=== PATIENT | female | born 1970 | race Caucasian/White ===

== ENCOUNTER 2017-05-31 05:52 | Emergency (ER) | payer MEDICAID ==
[2017-05-31 06:10] LABS: HEMATOCRIT 45.7 % (35.0-47.0); HEMOGLOBIN 15.4 gm/dl (11.6-16.0); MEAN CELL VOLUME 93.5 fl (81-97); MEAN CORPUSCULAR HEMOGLOBIN 31.5 pg (27-33); MEAN CORPUSCULAR HGB CONC 33.7 g/dl (32-36); MEAN PLATELET VOLUME 10.4 fl (7.4-10.4); PLATELET COUNT 397 K/uL (130-400); RED BLOOD COUNT 4.89 M/uL (3.80-5.40); RED CELL DISTRIBUTION WIDTH 17.1 % (11.5-14.5); WHITE BLOOD COUNT W/O DIFF 16.4 K/uL (4.2-12.2)
[2017-05-31] MEDS ORDERED: ASPIRIN 325 MG TABLET PO ONE (06:14)
[2017-05-31] MEDS ORDERED: ASPIRIN 81 MG CHEWABLE TABLET PO ONE (06:22)
--- NOTE | 2017-05-31 06:29 | Emergency Department Record ---
History of Present Illness - General Chief Complaint: Shortness of breath Stated Complaint: TROUBLE BREATHING Time Seen by Provider: 05/31/17 06:14 Source: Patient Mode of Arrival: EMS - History of Present Illness Initial Comments: Chest tightness throughout the night with Isidoro from her asthma. Patient is poor historian, crying, requesting to go to [facility]. Complaint: "Asthma attack", Chest pain Onset/Timin -: Days(s) Severity scale (1-10): 7 Worsens With: Inspiration Known History Of: Asthma Associated Symptoms: Denies other symptoms Treatments Prior to Arrival: Bronchodilator - Related Data Home Oxygen Therapy: No Home Medications Medication Instructions Recorded Confirmed Last Taken Simvastatin [Zocor] 20 mg PO QHS 06/05/14 12/02/15 12/01/15 Venlafaxine HCl [Effexor Xr] 150 mg PO DAILY 09/19/14 12/02/15 1 Day Ago ~12/01/15 Albuterol Sulfate [Ventolin Hfa] 2 inh IH Q6HR PRN 05/31/17 05/31/17 05/31/17 Previous Rx's Medication Instructions Recorded Lisinopril [Zestril] 10 mg PO DAILY #30 tablet 11/13/14 Pregabalin [Lyrica] 150 mg PO TID #90 capsule 02/01/15 Hydrocodone/Acetaminophen [[place] 1 tab PO QHS PRN #5 tab 09/14/15 5mg/325mg] Allergies Allergy/AdvReac Type Severity Reaction Status Date / Time No Known Drug Allergies Allergy Verified 03/01/15 12:57 Travel Screening - Travel/Exposure Within Last 30 Days Have you traveled within the last 30 days?: No - Travel Symptoms Symptom Screening: None Review of Systems Reviewed: No additional complaints except as noted below Constitutional: Reports: As per HPI. Denies: Chills, Fever, Malaise, Night sweats, Weakness, Weight change Eyes: Reports: As per HPI. Denies: Eye discharge, Eye pain, Photophobia, Vision change ENT: Reports: As per HPI. Denies: Congestion, Dental pain, Ear pain, Epistaxis , Hearing loss, Throat pain Respiratory: Reports: As per HPI. Denies: Cough, Dyspnea, Hemoptysis, Stridor, Wheezes Cardiovascular: Reports: As per HPI. Denies: Arrhythmia, Chest pain, Dyspnea on exertion, Edema, Murmurs, Orthopnea, Palpitations, Paroxysmal nocturnal dyspnea, Rheumatic Fever, Syncope Endocrine: Reports: As per HPI. Denies: Fatigue, Heat or cold intolerance, Polydipsia, Polyuria Gastrointestinal: Reports: As per HPI. Denies: Abdominal pain, Constipation, Diarrhea, Hematemesis, Hematochezia, Melena, Nausea, Vomiting Genitourinary: Reports: As per HPI. Denies: Abnormal menses, Discharge, Dyspareunia, Dysuria, Frequency, Hematuria, Incontinence, Retention, Urgency Musculoskeletal: Reports: As per HPI. Denies: Arthralgia, Back pain, Gout, Joint swelling, Myalgia, Neck pain Skin: Reports: As per HPI. Denies: Bruising, Change in color, Change in hair/ nails, Lesions, Pruritus, Rash Neurological: Reports: As per HPI. Denies: Abnormal gait, Confusion, Headache, Numbness, Paresthesias, Seizure, Tingling, Tremors, Vertigo, Weakness Psychiatric: Reports: As per HPI. Denies: Anxiety, Auditory hallucinations, Depression, Homicidal thoughts, Suicidal thoughts, Visual hallucinations Hematological/Lymphatic: Reports: As per HPI. Denies: Anemia, Blood Clots, Easy bleeding, Easy bruising, Swollen glands Past Medical History - SOCIAL HISTORY Smoking Status: Current every day smoker - RESPIRATORY Hx Respiratory Disorders: Yes Hx Asthma: Yes - CARDIOVASCULAR Hx Cardio Disorders: Yes Hx Abnormal EKG: Yes (UNKNOWN) Hx Hypertension: Yes - NEURO Hx Neuro Disorders: Yes Hx Neuropathy: Yes - GI Hx GI Disorders: No - Hx Genitourinary Disorders: No - ENDOCRINE Hx Endocrine Disorders: No Hx Diabetes: (borderline) - MUSCULOSKELETAL Hx Musculoskeletal Disorders: Yes Comment:: Spinal stenosis - PSYCH Hx Psych Problems: Yes Hx Anxiety: Yes Hx Depression: Yes - HEMATOLOGY/ONCOLOGY Hx Hematology/Oncology Disorders: No Family Medical History Any Significant Family History?: Yes Hx Diabetes: Mother, Brother/Sister Physical Exam - General General Appearance: Alert, Oriented x3, Cooperative, Severe distress (openly crying, diaphoretic) - Head Head exam: Normal inspection - Eye Eye exam: Normal appearance, PERRL Pupils: Normal accommodation - ENT ENT exam: Normal exam, Mucous membranes moist, Normal external ear exam, Normal orophraynx, TM's normal bilaterally Ear exam: Normal external inspection. negative: External canal tenderness Nasal Exam: Normal inspection. negative: Discharge, Sinus tenderness Mouth exam: Normal external inspection, Tongue normal Teeth exam: Normal inspection. negative: Dental caries Throat exam: Normal inspection. negative: Tonsillar erythema, Tonsillar exudate - Neck Neck exam: Normal inspection, Full ROM. negative: Tenderness - Respiratory Respiratory exam: Normal lung sounds bilaterally, Wheezes (faint distant occassional wheezes bilaterally). negative: Respiratory distress - Cardiovascular Cardiovascular Exam: Normal rhythm, Normal heart sounds, Tachycardia - GI/Abdominal GI/Abdominal exam: Soft, Normal bowel sounds. negative: Tenderness - Rectal Rectal exam: Deferred - exam: Deferred - Extremities Extremities exam: Normal inspection, Full ROM, Normal capillary refill. negative: Tenderness - Back Back exam: Reports: Normal inspection, Full ROM. Denies: Muscle spasm, Rash noted, Tenderness - Neurological Neurological exam: Alert, Normal gait, Oriented X3, Reflexes normal - Psychiatric Psychiatric exam: Normal affect, Normal mood - Skin Skin exam: Dry, Intact, Normal color, Warm Course Vital Signs 05/31/17 05:57 Temperature 98.1 F Pulse Rate 100 H Respiratory 22 Rate Blood Pressure 92/69 Pulse Ox 92 L - Reevaluation(s) Reevaluation #1: DW Dr. Painter who reviewed the EKG sent him. He is requesting a second EKG to review. 05/31/17 06:37 Medical Decision Making - Management Options [facility] Management: Additional Work-up Planned (e.g. 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 ST elevation I,II, AVF with no reciprocal changes; EKG repeated) Disposition Disposition: Transfer Clinical Impression: Acute [place] inferior lateral first episode care Disposition: Acute Care Hospital Transfer Transfer To: [facility] Reason For Transfer: Acute [place] Accepting Physician: Dr. Painter Time Discussed w/Accepting Physician: 06:42 Condition: (3) Guarded Forms: Patient Portal Access Quality - Quality Measures Quality Measures: N/A - Blood Pressure Screening Blood Pressure Classification: Normal BP Reading Systolic Measurement: 92 Diastolic Measurement: 69 Screening for High Blood Pressure: < Normal BP, F/U Not Required > [G8783] Normal BP Follow-up Interventions: No follow-up required
[2017-05-31 06:30] LABS: PLATELET ESTIMATE NORMAL (NORMAL)
[2017-05-31 06:31] LABS: INR 0.99; PARTIAL THROMBOPLASTIN TIME 29.2 SECONDS (24.5-39.1); PROTHROMBIN TIME (PATIENT) 10.7 SECONDS (9.5-12.1)
[2017-05-31] MEDS ORDERED: ONDANSETRON HCL IV 4 MG/2 ML VIAL IVP ONE (06:31)
[2017-05-31] MEDS ORDERED: HEPARIN SODIUM 1000 UNIT/1 ML 10ML VIAL IVP ONE (06:31)
[2017-05-31] MEDS ORDERED: 0.9 % SODIUM CHLORIDE 1000ML 1,000 ML IV ONE (06:32)
[2017-05-31 06:34] LABS: CKMB 2.9 ug/L (0-6); TROPONIN I 0.102 ng/mL (0.00-0.034)
[2017-05-31 06:38] LABS: ANION GAP 16.6 (7-16); BLOOD UREA NITROGEN 13 mg/dL (7-17); CARBON DIOXIDE 22.4 mmol/L (22-30); CREATININE 0.8 mg/dL (0.52-1.04); EST GLOMERULAR FILTRATION RATE > 60 ml/min; GLUCOSE,RANDOM 192 mg/dL (70-110)
[2017-05-31] MEDS ORDERED: HEPARIN SODIUM/D5W 25,000 UNITS/500 ML BAG IV SCH (06:45)
[2017-05-31] MEDS ORDERED: NITROGLYCERIN/D5W 50 MG/250 ML ML IV SCH (06:45)
[2017-05-31 07:09] LABS: THYROID STIMULATING HORMONE 3.73 uIU/ml (0.465-4.68)
--- NOTE | 2017-06-01 13:49 | RADIOLOGY REPORT ---
EXAM: AP CHEST HISTORY: ACUTE GENERALIZED CHEST PAIN, DIFFICULTY BREATHING. TECHNIQUE: AP view of the chest was obtained. Comparison: Chest x-ray 08/03/07. FINDINGS: The lungs are clear. The cardiac silhouette, diaphragm, and osseous structures are unremarkable for age. IMPRESSION: NEGATIVE CHEST EXAMINATION. JOB NUMBER: [id number] MTDD
== END 2017-05-31 07:04 | disposition short-term general hospital (02) ==
LOC: ER 05:52
DX: I21.29 ST elevation (STEMI) myocardial infarction involving other sites (principal); I10 Essential (primary) hypertension; F17.210 Nicotine dependence, cigarettes, uncomplicated
CPT/HCPCS: 99285 ×2; 96374; 96375; 82550; 85730; 85610; 82553; 84484; 80048; 84443; 85379; 85027; 83880; 71010; 93005; 93010; J2405; J7030

== ENCOUNTER 2017-06-13 17:47 | Emergency (ER) | payer MEDICAID ==
[2017-06-13] MEDS: IPRATROPIUM/ALBUTEROL (0.5MG/3MG) NEB INH ONE ×2 (17:55→19:46)
--- NOTE | 2017-06-13 18:03 | Emergency Department Record ---
History of Present Illness - General Source: Patient, EMS Mode of Arrival: EMS Limitations: Altered mental status - History of Present Illness Initial Comments: 47 yo female presents by EMS. The patient was found by her nephew unresponsive and appeared dusky. The last contact the family had with the patient was yesterday. He was returning her phone. The patient was found to be hypoxic on arrival, wheezing, sweating, and agitated. Per two sisters that arrived with her she had an FL in the last 2 weeks, she is know to have substance abuse history with Methamphetamine abuse and [place] abuse. MD Complaint: Altered mental status -: Hour(s) Severity: Severe Consistency: Constant Context: Drug abuse Associated Symptoms: Cough, Diaphoresis, Shortness of breath - [place] Coma Scale Eye Response: (4) Open spontaneously Motor Response: (6) Obeys commands Verbal Response: (4) Confused conversation [place] Total: 14 <RICHARD VU - Last Filed: 06/13/17 19:05> <Yusuf Stapleton - Last Filed: 06/13/17 21:34> - General Chief Complaint: Altered Mental Status Stated Complaint: ALTERED MENTAL STATE Time Seen by Provider: 06/13/17 17:50 - Related Data Home Medications Medication Instructions Recorded Confirmed Last Taken Simvastatin [Zocor] 20 mg PO QHS 06/05/14 06/13/17 05/30/17 Venlafaxine HCl [Effexor Xr] 150 mg PO BID 09/19/14 06/13/17 05/30/17 Albuterol Sulfate [Ventolin Hfa] 2 inh IH Q6HR PRN 05/31/17 06/13/17 05/31/17 Clonazepam [Klonopin] 1 mg PO Q12H 06/13/17 06/13/17 Unknown Hydrocodone/Acetaminophen 1 tab PO Q6H PRN 06/13/17 06/13/17 Unknown [Hydrocodone/Acetaminophen 10mg/325mg] Lisinopril [Zestril] 20 mg PO DAILY 06/13/17 06/13/17 Unknown Metoprolol Succinate [Toprol Xl] 25 mg PO DAILY 06/13/17 06/13/17 Unknown Morphine Sulfate [Morphine Sulfate] 15 mg PO QID 06/13/17 06/13/17 Unknown Pregabalin [Lyrica] 200 mg PO TID 06/13/17 06/13/17 Unknown Spironolactone [Aldactone] 25 mg PO DAILY 06/13/17 06/13/17 Unknown Allergies Allergy/AdvReac Type Severity Reaction Status Date / Time No Known Drug Allergies Allergy Verified 06/13/17 18:00 Review of Systems ROS unobtainable: Due to mental status <RICHARD VU - Last Filed: 06/13/17 19:05> Past Medical History - SOCIAL HISTORY Smoking Status: Current every day smoker - RESPIRATORY Hx Respiratory Disorders: Yes Hx Asthma: Yes - CARDIOVASCULAR Hx Cardio Disorders: Yes Hx Abnormal EKG: Yes (UNKNOWN) Hx Hypertension: Yes - NEURO Hx Neuro Disorders: Yes Hx Neuropathy: Yes - GI Hx GI Disorders: No - Hx Genitourinary Disorders: No - ENDOCRINE Hx Endocrine Disorders: No Hx Diabetes: (borderline) - MUSCULOSKELETAL Hx Musculoskeletal Disorders: Yes Comment:: Spinal stenosis - PSYCH Hx Psych Problems: Yes Hx Anxiety: Yes Hx Depression: Yes - HEMATOLOGY/ONCOLOGY Hx Hematology/Oncology Disorders: No <RICHARD VU - Last Filed: 06/13/17 19:05> Family Medical History Hx Diabetes: Mother, Brother/Sister <RICHARD VU - Last Filed: 06/13/17 19:05> Physical Exam - General General Appearance: Alert, Moderate distress Limitations: Altered mental status - Head Head exam: Normal inspection - Eye Eye exam: Normal appearance, PERRL. negative: Conjunctival injection - ENT ENT exam: Normal exam, Mucous membranes moist Ear exam: Normal external inspection Nasal Exam: Normal inspection Mouth exam: Normal external inspection Teeth exam: Normal inspection Throat exam: Normal inspection - Neck Neck exam: Normal inspection, Full ROM. negative: Tenderness - Respiratory Respiratory exam: Accessory muscle use, Decreased breath sounds, Prolonged expiratory, Respiratory distress, Rhonchi, Wheezes - Cardiovascular Cardiovascular Exam: Tachycardia Peripheral Pulses: 2+: Radial (R), Radial (L) - GI/Abdominal GI/Abdominal exam: Soft. negative: Tenderness - Rectal Rectal exam: Deferred - exam: Deferred - Extremities Extremities exam: Normal inspection, Full ROM, Normal capillary refill. negative: Pedal edema, Tenderness - Back Back exam: Reports: Normal inspection, Full ROM. Denies: Muscle spasm, Rash noted, Tenderness - Neurological Neurological exam: Alert, Altered (yelling, moaing) - Psychiatric Psychiatric exam: Agitated, Anxious - Skin Skin exam: Dry, Intact, Normal color, Warm <RICHARD VU - Last Filed: 06/13/17 19:05> Course - Reevaluation(s) Reevaluation #1: The patient was placed on a NRB with her initial biox of 71% The biox steadily increased to the 90's Her mental status steadily improved with breathing treatment and supplemental oxygen SHe became oriented to name and location in the ED as well as to family. 06/13/17 18:10 06/13/17 18:12 A MAPS was requested She filled Morphine IR 15mg on 06.04.17 dispensed amount was 120 [place] 10-325 filled on 06.04.17 dispensed amount 180 06/13/17 18:12 Reevaluation #2: The CBC was reviewed. No acute changes except WBC 12 The patient continues to slowly improve with improving mental status, still verbal outburst at times. 06/13/17 18:27 Reevaluation #3: The labs were reviewed K is 5.2 CR is 2.9 BUN is 43 Troponin is 0.014 CK is 227 lactic is 2.7 AST is 511 ALT is 141 06/13/17 18:48 Salicylate, Alcohol, and Acetaminophen is negative. EKG Sinus Tach at 107, Intervals QTc 575, [place] left, ST NS changes. No elevation or depression. The case was signed out to Dr Stapleton for review of remaining. 06/13/17 19:00 CPK total 29,227 BiCarb drip will be started 06/13/17 19:06 [facility] paged for transfer. 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 She also denies any SOB and has a biox of 96% on a 6 liter nasal cannula. She is speaking in full sentences and is answering questions appropriately but is crying at times and is upset about being here. I did discuss the [place] [facility] [place] accept the patient [place] [facility] [place] direct admit. We do have [address] and are infusing Normal Saline at 1000 cc's an hour in the R arm IV. The patient did have almost a 1000 cc's of urine drain from her bladder after the Galvan was placed. 06/13/17 19:20 Reevaluation #5: The patient is doing well at this time. Her vitals are stable with a BP of 100/ 60 and HR of 95. Biox is 96% on 5L NC. We did get an ABG back and the patient is retaining CO2 but since she is doing SO much better at this time and denies any SOB, BOOGIE, or pain and is breathing comfortably we will treat the patient with neb tx's and Lasix. I do not feel she needs to be intubated at this time and I did discuss this with the accepting physician at [facility] 06/13/17 19:48 06/13/17 21:06 The A service doctor refused to accept the patient because she thought she needed to go to the ICU. I then did discuss the case with Dr. Burleson who is the ICU senior resident and he does accept the patient to the ICU. <Yusuf Stapleton - Last Filed: 06/13/17 21:34> Medical Decision Making - Lab Data Result diagrams: 06/13/17 17:55 06/13/17 17:55 <RICHARD VU - Last Filed: 06/13/17 19:05> - Lab Data Result diagrams: 06/13/17 17:55 06/13/17 17:55 Lab Results 06/13/17 06/13/17 06/13/17 Range/Units 17:55 17:55 17:55 WBC 12.6 H (4.2-12.2) K/uL RBC 4.78 (3.80-5.40) M/uL Hgb 14.5 (11.6-16.0) gm/dl Hct 45.7 (35.0-47.0) % MCV 95.6 (81-97) fl MCH 30.3 (27-33) pg MCHC 31.7 L (32-36) g/dl RDW 16.7 H (11.5-14.5) % Plt Count 300 (130-400) K/uL MPV 11.4 H (7.4-10.4) fl Gran % 75.9 (47-80) % Lymphocytes % 17.0 (16-45) % Monocytes % 5.1 (0-9) % Eosinophils % 1.7 (0-6) % Basophils % 0.3 (0-6) % PT 10.7 (9.5-12.1) SECONDS INR 0.99 APTT 32.90 (24.5-39.1) SECONDS Sodium 138 (136-145) mmol/L Potassium 5.2 H (3.5-5.1) mmol/L Chloride 99 (98-107) mmol/L Carbon Dioxide 24.0 (22-30) mmol/L Anion Gap 15.0 (7-16) BUN 43 H (7-17) mg/dL Creatinine 2.9 H (0.52-1.04) mg/dL Estimated GFR 18 ml/min Random Glucose 186 H (70-110) mg/dL Lactic Acid 2.7 H (0.7-2.1) mmol/L Calcium 8.3 L (8.5-10.1) mg/dL Total Bilirubin 0.80 (0.2-1.3) mg/dL AST 511 H (14-36) U/L ALT 141 H (9-52) U/L Alkaline Phosphatase 108 (38-126) U/L Creatine Kinase 83302 H (30-135) U/L CK-MB (CK-2) 227.0 H (0-6) ug/L CK-MB (CK-2) Rel Index 0.70 (0-4) % Troponin I 0.014 (0.00-0.034) ng/mL NT-Pro-B Natriuret Pep (<125) pg/mL Total Protein 7.8 (6.3-8.2) gm/dL Albumin 4.6 (3.5-5.0) gm/dL Globulin 3.2 (1.4-4.8) gm/dL Albumin/Globulin Ratio 1.4 (1.1-1.8) Urine Color Urine Appearance Urine pH (5.0-8.0) Ur Specific [place] (1.002-1.030) Urine Protein (NEGATIVE) Urine Glucose (UA) (NEGATIVE) Urine Ketones (NEGATIVE) Urine Blood (NEGATIVE) Urine Nitrite (NEGATIVE) Urine Bilirubin (NEGATIVE) Urine Urobilinogen (0.20 - 1.00) E.U./dL Ur Leukocyte Esterase (NEGATIVE) Salicylates < 1.0 L (2.8-20.0) mg/dL Acetaminophen < 10.0 L (10.0-30.0) ug/mL Ethyl Alcohol 0.000 (0-0.010) g/dL 06/13/17 06/13/17 06/13/17 Range/Units 17:55 18:00 19:00 WBC (4.2-12.2) K/uL RBC (3.80-5.40) M/uL Hgb (11.6-16.0) gm/dl Hct (35.0-47.0) % MCV (81-97) fl MCH (27-33) pg MCHC (32-36) g/dl RDW (11.5-14.5) % Plt Count (130-400) K/uL MPV (7.4-10.4) fl Gran % (47-80) % Lymphocytes % (16-45) % Monocytes % (0-9) % Eosinophils % (0-6) % Basophils % (0-6) % PT (9.5-12.1) SECONDS INR APTT (24.5-39.1) SECONDS Sodium (136-145) mmol/L Potassium (3.5-5.1) mmol/L Chloride (98-107) mmol/L Carbon Dioxide (22-30) mmol/L Anion Gap (7-16) BUN (7-17) mg/dL Creatinine (0.52-1.04) mg/dL Estimated GFR ml/min Random Glucose (70-110) mg/dL Lactic Acid (0.7-2.1) mmol/L Calcium (8.5-10.1) mg/dL Total Bilirubin (0.2-1.3) mg/dL AST (14-36) U/L ALT (9-52) U/L Alkaline Phosphatase (38-126) U/L Creatine Kinase Cancelled (30-135) U/L CK-MB (CK-2) (0-6) ug/L CK-MB (CK-2) Rel Index (0-4) % Troponin I (0.00-0.034) ng/mL NT-Pro-B Natriuret Pep 2080.00 H (<125) pg/mL Total Protein (6.3-8.2) gm/dL Albumin (3.5-5.0) gm/dL Globulin (1.4-4.8) gm/dL Albumin/Globulin Ratio (1.1-1.8) Urine Color Yellow Urine Appearance Clear Urine pH 5.5 (5.0-8.0) Ur Specific [place] >= 1.030 (1.002-1.030) Urine Protein 100 mg/dl H (NEGATIVE) Urine Glucose (UA) 100 mg/dl H (NEGATIVE) Urine Ketones Negative (NEGATIVE) Urine Blood Large H (NEGATIVE) Urine Nitrite Negative (NEGATIVE) Urine Bilirubin Negative (NEGATIVE) Urine Urobilinogen 0.2 (0.20 - 1.00) E.U./dL Ur Leukocyte Esterase Negative (NEGATIVE) Salicylates (2.8-20.0) mg/dL Acetaminophen (10.0-30.0) ug/mL Ethyl Alcohol (0-0.010) g/dL <Yusuf Stapleton - Last Filed: 06/13/17 21:34> Critical Care Time Critical Care Time: Yes (60) <Yusuf Stapleton - Last Filed: 06/13/17 21:34> Disposition Disposition: [place] [facility] [place] For Transfer: [facility] Time of Disposition: 18:58 <RICHARD VU - Last Filed: 06/13/17 19:05> <Yusuf Stapleton - Last Filed: 06/13/17 21:34> Clinical Impression: Hypoxia, Acute renal failure, Substance abuse, COPD exacerbation, Rhabdomyolysis Disposition: Acute Care Hospital Transfer Condition: (3) Guarded Forms: Patient Portal Access Quality - Quality Measures Quality Measures: N/A - Blood Pressure Screening View Details: Yes Blood Pressure Classification: Normal BP Reading Systolic Measurement: 80 Diastolic Measurement: 49 Screening for High Blood Pressure: < Normal BP, F/U Not Required > [G8783] Normal BP Follow-up Interventions: No follow-up required <RICHARD VU - Last Filed: 06/13/17 19:05> - Quality Measures Quality Measures: N/A - Blood Pressure Screening View Details: Yes Blood Pressure Classification: Normal BP Reading Systolic Measurement: 80 Diastolic Measurement: 49 Screening for High Blood Pressure: < Normal BP, F/U Not Required > [G8783] Normal BP Follow-up Interventions: No follow-up required <Yusuf Stapleton - Last Filed: 06/13/17 21:34>
[2017-06-13 18:08] LABS: BASO % 0.3 % (0-6); EOS % 1.7 % (0-6); GRAN % 75.9 % (47-80); HEMATOCRIT 45.7 % (35.0-47.0); HEMOGLOBIN 14.5 gm/dl (11.6-16.0); MEAN CELL VOLUME 95.6 fl (81-97); MEAN CORPUSCULAR HEMOGLOBIN 30.3 pg (27-33); MEAN CORPUSCULAR HGB CONC 31.7 g/dl (32-36); MEAN PLATELET VOLUME 11.4 fl (7.4-10.4); MONO % 5.1 % (0-9); PLATELET COUNT 300 K/uL (130-400); RED BLOOD COUNT 4.78 M/uL (3.80-5.40); RED CELL DISTRIBUTION WIDTH 16.7 % (11.5-14.5); WHITE BLOOD COUNT W/O DIFF 12.6 K/uL (4.2-12.2)
[2017-06-13 18:20] LABS: INR 0.99; LACTIC ACID 2.7 mmol/L (0.7-2.1); PARTIAL THROMBOPLASTIN TIME 32.9 SECONDS (24.5-39.1); PROTHROMBIN TIME (PATIENT) 10.7 SECONDS (9.5-12.1)
[2017-06-13 18:25] LABS: BLOOD UREA NITROGEN 43 mg/dL (7-17); CREATININE 2.9 mg/dL (0.52-1.04); EST GLOMERULAR FILTRATION RATE 18 ml/min; GLUCOSE,RANDOM 186 mg/dL (70-110)
[2017-06-13 18:26] LABS: ACETAMINOPHEN < 10.0 ug/mL (10.0-30.0); ALB/GLOB RATIO 1.4 (1.1-1.8); ALBUMIN 4.6 gm/dL (3.5-5.0); ALKALINE PHOSPHATASE 108 U/L (38-126); ALT/SGPT 141 U/L (9-52); AST/SGOT 511 U/L (14-36); TOTAL PROTEIN 7.8 gm/dL (6.3-8.2)
[2017-06-13 18:27] LABS: SALICYLATE < 1.0 mg/dL (2.8-20.0)
[2017-06-13] MEDS: METHYLPREDNISOLONE PF 125MG/VIAL IVP ONE (18:35)
[2017-06-13 18:36] LABS: TROPONIN I 0.014 ng/mL (0.00-0.034)
[2017-06-13 19:02] LABS: CREATINE PHOSPHOKINASE 29227 U/L (30-135)
[2017-06-13 19:16] LABS: URINE APPEARANCE CLEAR; URINE BILIRUBIN NEGATIVE (NEGATIVE); URINE BLOOD LARGE (NEGATIVE); URINE COLOR YELLOW; URINE KETONE NEGATIVE (NEGATIVE); URINE LEUKOCYTE ESTERASE NEGATIVE (NEGATIVE); URINE NITRITE NEGATIVE (NEGATIVE); URINE UROBILINOGEN 0.2 E.U./dL (0.20 - 1.00)
[2017-06-13 19:21] LABS: AMPHETAMINE SCREEN URINE NOT DETECTED; BARBITURATE SCREEN URINE NOT DETECTED; BENZODIAZEPINE SCREEN URINE NOT DETECTED; COCAINE SCREEN URINE NOT DETECTED; METHADONE SCREEN URINE NOT DETECTED; METHAMPHETAMINE SCREEN NOT DETECTED; OPIATE SCREEN URINE DETECTED; OXYCODONE SCREEN URINE DETECTED; PHENCYCLIDINE SCREEN URINE NOT DETECTED; PROPOXYPHENE SCREEN URINE NOT DETECTED; THC SCREEN URINE DETECTED; TRICYCLIC ANTIDEPRESSANT SCRN DETECTED
[2017-06-13] MEDS: SODIUM CHLORIDE 0.9% 500 ML IV ONE (19:22)
[2017-06-13] MEDS: 0.9 % SODIUM CHLORIDE 1,000 ML BAG IV ONE (19:22)
[2017-06-13 19:32] LABS: URINE WBC 0 - 2 (0-2/hpf)
[2017-06-13 19:32] LABS: ARTERIAL BLD GAS O2 SATURATION 91.8 % (95-98); ARTERIAL BLOOD GAS BASE EXCESS -7.1 mmol/L (-2 - 3); ARTERIAL BLOOD GAS HCO3 22.1 mmol/L (18-23); METHEMOGLOBIN 0.5 % (0.0-1.5); O2 HEMOGLOBIN 89.5 % vol (94-99); TOTAL HEMOGLOBIN 13.3 g/dl (11.6-16)
[2017-06-13 19:33] LABS: URINE AMORPHOUS SEDIMENT 3+
[2017-06-13 19:34] LABS: ARTERIAL BLOOD GAS pH 7.17 (7.35-7.45)
[2017-06-13 19:35] LABS: ALLEN TEST PASS
[2017-06-13] MEDS: FUROSEMIDE IV 40MG/4ML VIAL IVP ONE (19:49)
[2017-06-13 20:31] LABS: ARTERIAL BLD GAS O2 SATURATION 90.4 % (95-98); ARTERIAL BLOOD GAS HCO3 22.3 mmol/L (18-23); CARBOXYHEMOGLOBIN 1.9 % (0-1.5); METHEMOGLOBIN 0.7 % (0.0-1.5); O2 HEMOGLOBIN 88.1 % vol (94-99); TOTAL HEMOGLOBIN 13.5 g/dl (11.6-16)
[2017-06-13 20:32] LABS: ARTERIAL BLOOD GAS pH 7.17 (7.35-7.45)
[2017-06-13 20:33] LABS: ALLEN TEST PASS; ARTERIAL BLOOD GAS PCO2 63.4 mmHg (35-48)
--- NOTE | 2017-06-16 11:10 | RADIOLOGY REPORT ---
EXAM: PORTABLE CHEST HISTORY: DIFFICULTY IN BREATHING, CHEST PAIN. TECHNIQUE: AP upright portable view of the chest was obtained. Comparison: Portable chest 05/31/17. FINDINGS: The heart size and pulmonary vascularity are at about the upper limits of normal. No acute alveolar infiltrate is seen. No pleural effusion or pneumothorax evident. Hypertrophic spurring in the spine particularly inferiorly in the thoracic region. IMPRESSION: THE HEART SIZE AND PULMONARY VASCULARITY ARE AT ABOUT THE UPPER LIMITS OF NORMAL. HYPERTROPHIC SPURRING IN THE SPINE. JOB NUMBER: [id number] [facility]
== END 2017-06-13 21:37 | disposition short-term general hospital (02) ==
LOC: ER 17:47
DX: R09.02 Hypoxemia (principal); N17.9 Acute kidney failure, unspecified; J44.1 Chronic obstructive pulmonary disease with (acute) exacerbation; M62.82 Rhabdomyolysis; R05 Cough; I10 Essential (primary) hypertension; F15.10 Other stimulant abuse, uncomplicated; F11.10 Opioid abuse, uncomplicated; I25.2 Old myocardial infarction; F17.210 Nicotine dependence, cigarettes, uncomplicated
CPT/HCPCS: 51702; 99291 ×2; 96374; 96375; 96361; 82550; 83605; 83735; 85025; 85730; 85610; 82375; 82553; 84484; 80053; 81001; 82803; 80305; 83880; 71010; 94640 ×2; 93005; 93010; G0480 ×3; 80320; 80329; J1940; J2930; J7030

== ENCOUNTER 2017-07-22 13:45 | Emergency (ER) | payer MEDICAID | END 2017-07-22 13:52 | disposition left against medical advice (07) | LOC: ER 13:45 | DX: Z53.20 Procedure and treatment not carried out because of patient's decision for unspecified reasons (principal) ==

== ENCOUNTER 2017-11-13 19:11 | Emergency (ER) | payer MEDICAID ==
[2017-11-13 21:15] LABS: BASO % 0.5 % (0-6); EOS % 9.3 % (0-6); GRAN % 44.4 % (47-80); HEMATOCRIT 42.3 % (35.0-47.0); HEMOGLOBIN 13.4 gm/dl (11.6-16.0); LYMPH % 37.9 % (16-45); MEAN CELL VOLUME 88.9 fl (81-97); MEAN CORPUSCULAR HEMOGLOBIN 28.2 pg (27-33); MEAN CORPUSCULAR HGB CONC 31.7 g/dl (32-36); MEAN PLATELET VOLUME 10.8 fl (7.4-10.4); MONO % 7.9 % (0-9); PLATELET COUNT 298 K/uL (130-400); RED BLOOD COUNT 4.76 M/uL (3.80-5.40); RED CELL DISTRIBUTION WIDTH 18.3 % (11.5-14.5); WHITE BLOOD COUNT W/O DIFF 9.6 K/uL (4.2-12.2)
[2017-11-13] MEDS ORDERED: CLINDAMYCIN IVPB ONE (21:31)
[2017-11-13] MEDS ORDERED: SODIUM CHLORIDE 0.9% IVPB ONE (21:31)
--- NOTE | 2017-11-13 21:45 | Emergency Department Record ---
History of Present Illness - General Chief complaint: Lower Extremity Pain Stated complaint: INFECTION IN RT FOOT Time Seen by Provider: 11/13/17 19:37 Source: Patient Mode of Arrival: Ambulatory Limitations: No limitations - History of Present Illness Initial comments: pt is having increased pain in foot, she has swelling and erythema and drainage. she is wondering if she has an infection and a fb in foot. she has had similar problems in the past and has an amputation of her great toe MD Complaint: Extremity pain, Extremity swelling Onset/Timin -: Days(s) Location: Right, Foot Severity scale (1-10): 4 Quality: Burning Consistency: Constant Improves with: Rest Worsens with: Walking, Weight bearing Associated Symptoms: Denies other symptoms - Related Data Home Medications Medication Instructions Recorded Confirmed Last Taken Aspirin 81 mg PO DAILY 11/13/17 11/13/17 Unknown Metoprolol Tartrate [Lopressor] 25 mg PO DAILY 11/13/17 11/13/17 Unknown Sulfamethoxazole/Trimethoprim 1 each PO BID 11/13/17 11/13/17 Unknown [Bactrim Ds Tablet] Valproic Acid 6 tab PO QHS 11/13/17 11/13/17 Unknown Previous Rx's Medication Instructions Recorded Clindamycin HCl 150 mg PO QID #40 capsule 11/13/17 Clindamycin HCl 300 mg PO QID #40 capsule 11/13/17 Allergies Allergy/AdvReac Type Severity Reaction Status Date / Time No Known Drug Allergies Allergy Verified 06/13/17 18:00 Travel Screening - Travel/Exposure Within Last 30 Days Have you traveled within the last 30 days?: No - Travel Symptoms Symptom Screening: None Review of Systems Reviewed: No additional complaints except as noted below Constitutional: Reports: As per HPI. Denies: Chills, Fever, Malaise, Night sweats, Weakness, Weight change Eyes: Reports: As per HPI. Denies: Eye discharge, Eye pain, Photophobia, Vision change ENT: Reports: As per HPI. Denies: Congestion, Dental pain, Ear pain, Epistaxis , Hearing loss, Throat pain Respiratory: Reports: As per HPI. Denies: Cough, Dyspnea, Hemoptysis, Stridor, Wheezes Cardiovascular: Reports: As per HPI. Denies: Arrhythmia, Chest pain, Dyspnea on exertion, Edema, Murmurs, Orthopnea, Palpitations, Paroxysmal nocturnal dyspnea, Rheumatic Fever, Syncope Endocrine: Reports: As per HPI. Denies: Fatigue, Heat or cold intolerance, Polydipsia, Polyuria Gastrointestinal: Reports: As per HPI. Denies: Abdominal pain, Constipation, Diarrhea, Hematemesis, Hematochezia, Melena, Nausea, Vomiting Genitourinary: Reports: As per HPI. Denies: Abnormal menses, Discharge, Dyspareunia, Dysuria, Frequency, Hematuria, Incontinence, Retention, Urgency Musculoskeletal: Reports: As per HPI. Denies: Arthralgia, Back pain, Gout, Joint swelling, Myalgia, Neck pain Skin: Reports: As per HPI. Denies: Bruising, Change in color, Change in hair/ nails, Lesions, Pruritus, Rash Neurological: Reports: As per HPI. Denies: Abnormal gait, Confusion, Headache, Numbness, Paresthesias, Seizure, Tingling, Tremors, Vertigo, Weakness Psychiatric: Reports: As per HPI. Denies: Anxiety, Auditory hallucinations, Depression, Homicidal thoughts, Suicidal thoughts, Visual hallucinations Hematological/Lymphatic: Reports: As per HPI. Denies: Anemia, Blood Clots, Easy bleeding, Easy bruising, Swollen glands Past Medical History - SOCIAL HISTORY Smoking Status: Current every day smoker - RESPIRATORY Hx Respiratory Disorders: Yes Hx Asthma: Yes Hx COPD: Yes - CARDIOVASCULAR Hx Cardio Disorders: Yes Hx Abnormal EKG: Yes (UNKNOWN) Hx CHF: Yes Hx Hypertension: Yes - NEURO Hx Neuro Disorders: Yes Hx Neuropathy: Yes - GI Hx GI Disorders: No - Hx Genitourinary Disorders: Yes Hx UTI: Yes (current 10/2017) - ENDOCRINE Hx Endocrine Disorders: No Hx Diabetes: (borderline) - MUSCULOSKELETAL Hx Musculoskeletal Disorders: Yes Comment:: Spinal stenosis - PSYCH Hx Psych Problems: Yes Hx Anxiety: Yes Hx Depression: Yes - HEMATOLOGY/ONCOLOGY Hx Hematology/Oncology Disorders: No Family Medical History Any Significant Family History?: Yes Hx Diabetes: Mother, Brother/Sister Physical Exam - General General Appearance: Alert, Oriented x3, Cooperative, Mild distress - Head Head exam: Normal inspection - Eye Eye exam: Normal appearance, PERRL, EOMI Pupils: Normal accommodation - ENT ENT exam: Normal exam, Mucous membranes moist, Normal external ear exam, Normal orophraynx Ear exam: Normal external inspection. negative: External canal tenderness Nasal Exam: Normal inspection. negative: Discharge, Sinus tenderness Mouth exam: Normal external inspection, Tongue normal Teeth exam: Normal inspection. negative: Dental caries Throat exam: Normal inspection. negative: Tonsillar erythema, Tonsillar exudate - Neck Neck exam: Normal inspection, Full ROM. negative: Tenderness - Respiratory Respiratory exam: Normal lung sounds bilaterally. negative: Respiratory distress - Cardiovascular Cardiovascular Exam: Regular rate, Normal rhythm, Normal heart sounds - GI/Abdominal GI/Abdominal exam: Soft, Normal bowel sounds. negative: Tenderness - Rectal Rectal exam: Deferred - exam: Deferred - Extremities Extremities exam: Normal capillary refill, Tenderness. negative: Normal inspection, Full ROM Image of Feet: 1 - swelling, erythema, tender, calluses, great toe amputation - Back Back exam: Reports: Normal inspection, Full ROM. Denies: Muscle spasm, Rash noted, Tenderness - Neurological Neurological exam: Alert, CN II-XII intact, Normal gait, Oriented X3 - Psychiatric Psychiatric exam: Normal affect, Normal mood - Skin Skin exam: Dry, Intact, Normal color, Warm Course Vital Signs 11/13/17 11/13/17 19:33 20:58 Temperature 98.7 F 98.5 F Pulse Rate 72 Pulse Rate [ 71 Pulse Ox Probe] Respiratory 18 18 Rate Blood Pressure 113/84 Blood Pressure 119/66 [Left Arm] Pulse Ox 96 93 L - Reevaluation(s) Reevaluation #1: 11/13/17 21:45 pt has new fx in 2nd phalynx. d/w dr odonnell Medical Decision Making - Lab Data Result diagrams: 11/13/17 21:01 Lab Results 11/13/17 Range/Units 21:01 WBC 9.6 (4.2-12.2) K/uL RBC 4.76 (3.80-5.40) M/uL Hgb 13.4 (11.6-16.0) gm/dl Hct 42.3 (35.0-47.0) % MCV 88.9 (81-97) fl MCH 28.2 (27-33) pg MCHC 31.7 L (32-36) g/dl RDW 18.3 H (11.5-14.5) % Plt Count 298 (130-400) K/uL MPV 10.8 H (7.4-10.4) fl Gran % 44.4 L (47-80) % Lymphocytes % 37.9 (16-45) % Monocytes % 7.9 (0-9) % Eosinophils % 9.3 H (0-6) % Basophils % 0.5 (0-6) % Disposition Disposition: Discharge Clinical Impression: Cellulitis and abscess of foot Fracture of toe of right foot Qualifiers: Encounter type: initial encounter Toe: lesser toe Fracture type: closed Phalanx : proximal Fracture alignment: nondisplaced Qualified Code(s): S92.514A - Nondisplaced fracture of proximal phalanx of right lesser toe(s), initial encounter for closed fracture Disposition: Home, Self-Care Condition: (1) Good Instructions: Toe Fracture (ED), Cellulitis (ED) Additional Instructions: follow up with dr odonnell on thursday.. return sooner if worse. keep foot elevated.,warm soaks. stop bactrim Prescriptions: Clindamycin HCl 150 mg PO QID #40 capsule Clindamycin HCl 300 mg PO QID #40 capsule Quality - Quality Measures Quality Measures: N/A - Blood Pressure Screening Does Patient Have Any of the Following: No Blood Pressure Classification: Pre-Hypertensive BP Reading Systolic Measurement: 113 Diastolic Measurement: 84 Screening for High Blood Pressure: < Pre-Hypertensive BP, F/U Documented > [ G8950] Pre-Hypertensive Follow-up Interventions: Follow-up with rescreen every year.
--- NOTE | 2017-11-13 23:50 | RADIOLOGY REPORT ---
EXAM: FOOT, RIGHT 3 VIEWS HISTORY: PAINFUL AND DRAINING RED FLUID. TECHNIQUE: Three views of the right foot. COMPARISON: 12/02/2015. FINDINGS: There is a fracture seen at the base of the proximal phalanx of the right second toe. This is new since the previous study. This extends into the joint space involving approximately 50% of the articular surface. There are postoperative changes. There has been prior amputation of the great toe at the level of the mid first metatarsal. No destructive process seen. There are plantar and dorsal calcaneal spurs. IMPRESSION: 1. MINIMALLY DISPLACED OBLIQUE FRACTURE THROUGH THE PROXIMAL ASPECT OF THE PROXIMAL PHALANX OF THE RIGHT SECOND TOE, NEW SINCE THE PREVIOUS STUDY. 2. PRIOR AMPUTATION OF THE RIGHT GREAT TOE AT THE LEVEL OF THE MID FIRST METATARSAL. THERE IS MORE AMPUTATION THAN WAS PRESENT PREVIOUSLY. 3. THERE ARE PLANTAR AND DORSAL CALCANEAL SPURS. JOB NUMBER: [id number] MTDD
== END 2017-11-13 22:31 | disposition home or self-care (01) ==
LOC: ER 19:11
DX: L03.115 Cellulitis of right lower limb (principal)
CPT/HCPCS: 85025; 96374; 99284

== ENCOUNTER 2018-04-04 03:44 | Emergency (ER) | payer MEDICAID ==
[2018-04-04 04:11] LABS: BASO % 0.8 % (0-6); EOS % 5.1 % (0-6); GRAN % 43.3 % (47-80); HEMATOCRIT 45.2 % (35.0-47.0); HEMOGLOBIN 14.9 gm/dl (11.6-16.0); LYMPH % 40.3 % (16-45); MEAN PLATELET VOLUME 11.1 fl (7.4-10.4); MONO % 10.5 % (0-9); PLATELET COUNT 256 K/uL (130-400); RED BLOOD COUNT 4.66 M/uL (3.80-5.40); RED CELL DISTRIBUTION WIDTH 16.3 % (11.5-14.5); WHITE BLOOD COUNT W/O DIFF 11.3 K/uL (4.2-12.2)
[2018-04-04 04:18] LABS: BLOOD UREA NITROGEN 12 mg/dL (6-20); CREATININE 0.6 mg/dL (0.5-0.9); EST GLOMERULAR FILTRATION RATE > 60 mL/min
[2018-04-04 04:21] LABS: GLUCOSE,RANDOM 133 mg/dL (74-109)
[2018-04-04] MEDS ORDERED: CEFTRIAXONE SODIUM 1 GM in 0.9 % SODIUM CHLORIDE 100ML 100 ML IVPB ONE ×2 (04:25→04:26)
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
--- NOTE | 2018-04-05 09:34 | RADIOLOGY REPORT ---
EXAM: LEFT KNEE, FOUR VIEWS HISTORY: OPEN AND DRAINING WOUND. INFECTION AND INJURY. TECHNIQUE: Four views of the left knee were obtained. FINDINGS: Mild knee joint effusion. Mild scattered soft tissue swelling. No radiopaque foreign body or soft tissue gas. No fracture or malalignment is seen. The joint spaces are overall preserved. Mild subchondral sclerosis medial compartment. IMPRESSION: NO ACUTE LEFT KNEE ABNORMALITY. MILD LEFT KNEE JOINT EFFUSION. JOB NUMBER: [id number] MTDD
--- NOTE | 2018-04-05 09:37 | RADIOLOGY REPORT ---
EXAM: LEFT FOOT, THREE VIEWS HISTORY: OPENING AND DRAINING WOUND LEFT PINKY TOE. TECHNIQUE: Three views of the left foot were obtained. FINDINGS: Soft tissue gas lateral fifth digit. No destructive osseous changes to suggest osteomyelitis. No fracture or malalignment. Moderate calcaneal enthesophytes. There are a few small dystrophic calcifications within the plantar fascia as well. Tiny posterior calcaneal enthesophyte. IMPRESSION: SOFT TISSUE GAS LATERAL FIFTH DIGIT CORRELATING WITH PATIENT'S OPEN AND DRAINING WOUND. NO RADIOGRAPHIC EVIDENCE OF OSTEOMYELITIS. JOB NUMBER: [id number] [facility]
== END 2018-04-04 05:56 | disposition home or self-care (01) ==
LOC: ER 03:44
DX: S83.92XA Sprain of unspecified site of left knee, initial encounter (principal); E11.621 Type 2 diabetes mellitus with foot ulcer; L97.529 Non-pressure chronic ulcer of other part of left foot with unspecified severity; J44.9 Chronic obstructive pulmonary disease, unspecified; I50.9 Heart failure, unspecified; I10 Essential (primary) hypertension; F17.210 Nicotine dependence, cigarettes, uncomplicated; X50.9XXA Other and unspecified overexertion or strenuous movements or postures, initial encounter; Y92.009 Unspecified place in unspecified non-institutional (private) residence as the place of occurrence of the external cause
CPT/HCPCS: 80048; 85025; 96365; 99284

== ENCOUNTER 2018-04-30 01:24 | Emergency (ER) | payer MEDICAID, MEDICARE ==
[2018-04-30] MEDS ORDERED: KETOROLAC 30 MG/ML VIAL IM ONE (01:50)
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
== END 2018-04-30 02:37 | disposition home or self-care (01) ==
LOC: ER 01:24
DX: S86.912A Strain of unspecified muscle(s) and tendon(s) at lower leg level, left leg, initial encounter (principal); X58.XXXA Exposure to other specified factors, initial encounter; I50.9 Heart failure, unspecified; I10 Essential (primary) hypertension; F17.210 Nicotine dependence, cigarettes, uncomplicated; J44.9 Chronic obstructive pulmonary disease, unspecified
CPT/HCPCS: 96372; 99283; J1885

== ENCOUNTER 2019-06-14 19:54 | Emergency (ER) | payer MEDICARE, MEDICAID ==
[2019-06-14] MEDS ORDERED: CLINDAMYCIN 150 MG CAP PO ONE (20:04)
--- NOTE | 2019-06-14 20:08 | Emergency Department Record ---
History of Present Illness - General Chief complaint: Extremity Problem Stated complaint: RT FOOT OPEN WOUND Time Seen by Provider: 06/14/19 20:04 Source: Patient Mode of Arrival: Ambulatory Limitations: No limitations - History of Present Illness Initial comments: 49 yo female presents to ED for evaluation of a wound to the plantar surface of the left great toe. Patient reports that she has been seeing Dr. Wilson for intermittent "shavings" of the left great toe, was in the shower this afternoon and report "picking a callous" that then opened up resulting in an open wound to the toe. Patient did not call Dr. Ortiz's office, denies fevers, chills, or redness to the affected toe. Patient does report history or neuropathy and "borderline DM" that took Metformin daily for until January of this year. Patient reports that she no longer has a PCP. MD Complaint: Other (Toe pain) Onset/Timin -: Days(s) Location: Left, Foot Radiation: Proximal Quality: Aching Consistency: Constant, Intermittent Improves with: Nothing Worsens with: Nothing Associated Symptoms: Denies other symptoms - Related Data Previous Rx's Medication Instructions Recorded Clindamycin HCl [Cleocin HCl] 300 mg PO QID #39 capsule 06/14/19 Allergies Allergy/AdvReac Type Severity Reaction Status Date / Time No Known Drug Allergies Allergy Verified 06/14/19 20:04 Travel Screening - Travel/Exposure Within Last 30 Days Have you traveled within the last 30 days?: No - Travel/Exposure Within Last Year Have you traveled outside the [place] in the last year?: No - Additonal Travel Details Have you been exposed to anyone with a communicable illness?: No - Travel Symptoms Symptom Screening: None Review of Systems Constitutional: Denies: Chills, Fever, Malaise, Night sweats Eyes: Denies: Eye discharge, Eye pain ENT: Denies: Congestion, Ear pain, Epistaxis Respiratory: Denies: Cough, Dyspnea Cardiovascular: Denies: Chest pain, Dyspnea on exertion Endocrine: Denies: Fatigue, Heat or cold intolerance Gastrointestinal: Denies: Abdominal pain, Nausea, Vomiting Genitourinary: Denies: Incontinence, Retention Musculoskeletal: Denies: Arthralgia, Back pain Skin: Reports: Other (Wound to the left great toe). 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) Hx Sleep Apnea: Yes Hx of CPAP: No - CARDIOVASCULAR Hx Cardio Disorders: Yes Hx Abnormal EKG: Yes Hx Cardiac Cath: Yes (2017 negative) Hx CHF: Yes (with pneumonia 2017) Hx Heart Attack: Yes (has been told she has had) Hx Hypertension: Yes (on meds good control) - NEURO Hx Neuro Disorders: Yes 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) - GI Hx GI Disorders: No - Hx Genitourinary Disorders: Yes Hx Bladder Problem: Yes (incontinence stress) Hx Renal Disease: Yes (hx kidney failure with pneumonia no dialysis) Hx UTI: Yes (hx of) Comment:: polycystic ovarian disease - ENDOCRINE Hx Endocrine Disorders: No Hx Diabetes: (denies) - MUSCULOSKELETAL Hx Musculoskeletal Disorders: Yes Comment:: Spinal stenosis; L knee sprain recently - PSYCH Hx Psych Problems: Yes Comment:: bipolar - HEMATOLOGY/ONCOLOGY Hx Hematology/Oncology Disorders: No Family Medical History Any Significant Family History?: Yes Hx Diabetes: Mother, Brother/Sister Physical Exam - General General Appearance: Alert, Oriented x3, Cooperative, No acute distress Limitations: No limitations - Head Head exam: Atraumatic, Normocephalic, Normal inspection Head exam detail: negative: Abrasion, Contusion, Wall's sign, General tenderness, Hematoma, Laceration - Eye Eye exam: Normal appearance. negative: Conjunctival injection, Periorbital swelling, Periorbital tenderness, Scleral icterus - ENT Ear exam: negative: Auricular hematoma, Auricular trauma Nasal Exam: negative: Active bleeding, Discharge, Dried blood, Foreign body Mouth exam: negative: Drooling, Laceration, Muffled voice, Tongue elevation - Neck Neck exam: Normal inspection. negative: Meningismus, Tenderness - Respiratory Respiratory exam: Normal lung sounds bilaterally. negative: Rales, Respiratory distress, Rhonchi, Stridor - Cardiovascular Cardiovascular Exam: Regular rate, Normal rhythm, Normal heart sounds Peripheral Pulses: 3+: Dorsalis Pedis (L) - GI/Abdominal GI/Abdominal exam: Soft. negative: Rebound, Rigid, Tenderness - Rectal Rectal exam: Deferred - exam: Deferred - Extremities Extremities exam: Other (2.5 cm open wound without draiange or surrounding erythema to the wound involving the tuft of the left great toe dorsally, no evidence for infection on examination.). negative: Calf tenderness, Pedal edema, Tenderness - Back Back exam: Denies: CVA tenderness (R), CVA tenderness (L) - Neurological Neurological exam: Alert, Normal gait, Oriented X3 - Psychiatric Psychiatric exam: Normal affect, Normal mood - Skin Skin exam: Normal color. negative: Abrasion Type of lesion: negative: abrasion Course Vital Signs 06/14/19 20:03 Temperature 98.7 F Pulse Rate [ 138 H Left] Respiratory 16 Rate Blood Pressure 141/90 [Left] Pulse Ox 98 - Reevaluation(s) Reevaluation #1: 06/14/19 20:18 Patient was seen and examined. Wound does not appear acutely infected Will however initiate treatment with Clindamycin and wound dressing with instructions to call Dr. Ortiz's office in the morning for a follow-up appointment and likely wound care referral in 1-3 days. Patient was also given instructions to call Dr. Gray's office to establish as as new patient to renew her home medications. Patient verbalizes understanding of all instructions and appears stable for discharge at this time. Reevaluation #2: 06/14/19 20:31 Repeat pulse 94-102 on re-examination. Disposition Disposition: Discharge Clinical Impression: Open wound of left great toe Qualifiers: Encounter type: initial encounter Qualified Code(s): S91.102A - Unspecified open wound of left great toe without damage to nail, initial encounter Disposition: Home, Self-Care Condition: (2) Stable Instructions: Acute Wound Care (ED) Additional Instructions: Return to ED if your symptoms worsen or if you have any concerns. Clindamycin as directed. Follow-up with Dr. Ortiz in 3-5 days as directed, call tomorrow morning for an appointment. Call Dr. Gray to establish with a PCP in 3-5 days as directed. Prescriptions: Clindamycin HCl [Cleocin HCl] 300 mg PO QID #39 capsule Referrals: ALTHEA GRAY [MEDICAL DOCTOR] - Forms: Patient Portal Access Time of Disposition: 20:07 Quality - Quality Measures Quality Measures: N/A - Blood Pressure Screening Does Patient Have Any of the Following: Active Dx of HTN Blood Pressure Classification: Hypertensive Reading Systolic Measurement: 141 Diastolic Measurement: 90 Screening for High Blood Pressure: Patient Exclusion, Hx of HTN [G9744]
== END 2019-06-14 20:32 | disposition home or self-care (01) ==
LOC: ER 19:54
DX: S91.102A Unspecified open wound of left great toe without damage to nail, initial encounter (principal); I10 Essential (primary) hypertension; J44.9 Chronic obstructive pulmonary disease, unspecified; I25.2 Old myocardial infarction; F17.210 Nicotine dependence, cigarettes, uncomplicated; W22.8XXA Striking against or struck by other objects, initial encounter; Y93.E1 Activity, personal bathing and showering
CPT/HCPCS: 99283; 99284

== ENCOUNTER 2019-07-20 23:53 | Emergency (ER) | payer BC, MEDICAID ==
--- NOTE | 2019-07-21 00:15 | Emergency Department Record ---
History of Present Illness - General Chief complaint: Abscess Stated complaint: ABSCESS Time Seen by Provider: 07/21/19 00:12 Source: Patient Mode of Arrival: Ambulatory Limitations: No limitations - History of Present Illness Initial comments: Pt to ED for a painful bump "above her vagina". Onset 2 days ago. No fever, no DM. No truama. Hx of MRSA in past. Hx Tetanus Toxoid Vaccination: Yes Year of Tetanus Vaccination: 2017 - Related Data Previous Rx's Medication Instructions Recorded Clindamycin HCl [Cleocin HCl] 300 mg PO QID #39 capsule 06/14/19 Sulfamethoxazole/Trimethoprim 1 each PO BID 7 Days #14 tablet 07/21/19 [Bactrim Ds Tablet] Allergies Allergy/AdvReac Type Severity Reaction Status Date / Time No Known Drug Allergies Allergy Verified 06/14/19 20:04 Review of Systems Constitutional: Denies: Chills, Fever, Malaise Eyes: Denies: Eye discharge ENT: Denies: Congestion Respiratory: Denies: Cough Cardiovascular: Denies: Arrhythmia, Chest pain Endocrine: Denies: Fatigue Gastrointestinal: Denies: Abdominal pain Musculoskeletal: Denies: Back pain Skin: Reports: As per HPI Neurological: Denies: Abnormal gait Psychiatric: Denies: Anxiety Past Medical History - SOCIAL HISTORY Smoking Status: Current every day smoker Drug Use: Occasional Drug Use Detail:: Marijuana - RESPIRATORY Hx Respiratory Disorders: Yes Hx Asthma: Yes (uses when she has a cold or when the humidity is high) Hx Bronchitis: Yes Hx COPD: Yes Hx Pneumonia: Yes (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) Hx Sleep Apnea: Yes Hx of CPAP: No - CARDIOVASCULAR Hx Cardio Disorders: Yes Hx Abnormal EKG: Yes Hx Cardiac Cath: Yes (2017 negative) Hx CHF: Yes (with pneumonia 2017) Hx Heart Attack: Yes (has been told she has had) Hx Hypertension: Yes (on meds good control) - NEURO Hx Neuro Disorders: Yes 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) - GI Hx GI Disorders: No - Hx Genitourinary Disorders: Yes Hx Bladder Problem: Yes (incontinence stress) Hx Renal Disease: Yes (hx kidney failure with pneumonia no dialysis) Hx UTI: Yes (hx of) Comment:: polycystic ovarian disease - ENDOCRINE Hx Endocrine Disorders: No Hx Diabetes: (denies) - MUSCULOSKELETAL Hx Musculoskeletal Disorders: Yes Comment:: Spinal stenosis; L knee sprain recently - PSYCH Hx Psych Problems: Yes Comment:: bipolar - HEMATOLOGY/ONCOLOGY Hx Hematology/Oncology Disorders: No Family Medical History Hx Diabetes: Mother, Brother/Sister Physical Exam - General General Appearance: Alert, Oriented x3, Cooperative, No acute distress - Head Head exam: Atraumatic, Normocephalic - Eye Eye exam: PERRL, EOMI - ENT ENT exam: Mucous membranes moist Nasal Exam: Normal inspection - Respiratory Respiratory exam: Normal lung sounds bilaterally. negative: Respiratory distress - Cardiovascular Cardiovascular Exam: Regular rate, Normal rhythm - GI/Abdominal GI/Abdominal exam: Soft, Normal bowel sounds. negative: Tenderness - Extremities Extremities exam: Normal inspection. negative: Tenderness - Neurological Neurological exam: Alert, Normal gait, Oriented X3 - Psychiatric Psychiatric exam: Normal affect, Normal mood. negative: Anxious, Depressed - Skin Skin exam: Normal color. negative: Rash Type of lesion: Abscess (2cm area of induration/fluctuance to mid mons with local erythema. No abscess to labia. ) Course Vital Signs 07/20/19 23:58 Temperature 98.6 F Pulse Rate [ 122 H Pulse Ox Probe] Respiratory 24 Rate Blood Pressure 134/88 [Left Arm] Pulse Ox 97 - Reevaluation(s) Reevaluation #1: 07/21/19 00:18 PROCEDURE: pt supine and area of Mons prepped with alcohol. Local with 1% lido with epi and #11 blade incision with 1cc of bloody fluid. Probed with hemostat adn irrigated with 10cc saline. Bleeding controlled. Dressing applied. Tolerated well. Procedures - Incision and Drainage Site: Mons pubis Blade Size: 11 Disposition Disposition: Discharge Clinical Impression: Abscess Condition: (1) Good Instructions: Abscess Incision and Drainage (ED), Abscess (ED) Additional Instructions: Warm compress tylenol for pain recheck family doctor in 2 days return tot he ED as needed. Prescriptions: Sulfamethoxazole/Trimethoprim [Bactrim Ds Tablet] 1 each PO BID 7 Days #14 tablet Forms: Patient Portal Access Time of Disposition: 00:15 Quality - Quality Measures Quality Measures: N/A - Blood Pressure Screening Does Patient Have Any of the Following: No Blood Pressure Classification: Pre-Hypertensive BP Reading Systolic Measurement: 134 Diastolic Measurement: 88 Screening for High Blood Pressure: < Pre-Hypertensive BP, F/U Documented > [G8950] Pre-Hypertensive Follow-up Interventions: Follow-up with rescreen every year.
[2019-07-21] MEDS ORDERED: TMP/SMZ 160MG/800MG TAB PO ONE (00:20)
== END 2019-07-21 00:45 | disposition home or self-care (01) ==
LOC: ER 23:53
DX: L02.215 Cutaneous abscess of perineum (principal)
CPT/HCPCS: 10060; 99284

== ENCOUNTER 2019-08-26 10:46 | Emergency (ER) | payer BC ==
[2019-08-26] MEDS ORDERED: ACETAMINOPHEN 325 MG TAB PO ONE (11:05)
--- NOTE | 2019-08-26 11:10 | Emergency Department Record ---
History of Present Illness - General Chief complaint: Abscess Stated complaint: ABSCESS Time Seen by Provider: 08/26/19 10:50 Source: Patient Mode of Arrival: Ambulatory Limitations: No limitations - History of Present Illness Initial comments: The patient has had pain in her perineal area for 2-3 days where she has had an abscess in the past. She is concerned she has another. The patient denies any vaginal pain or abdominal pain or fever. She recently did have some teeth pulled. complaint: Abscess/boil Onset/Timin -: Days(s) Hx Tetanus Toxoid Vaccination: Yes Year of Tetanus Vaccination: 2016 Location: Buttocks, Genitals Severity: Mild Severity scale (1-10): 3 Quality: Aching Consistency: Constant Improves with: None Worsens with: Palpation Context: None Associated symptoms: Denies other symptoms Treatments Prior to Arrival: None - Related Data Previous Rx's Medication Instructions Recorded Clindamycin HCl [Cleocin HCl] 300 mg PO QID #28 capsule 08/26/19 Allergies Allergy/AdvReac Type Severity Reaction Status Date / Time No Known Drug Allergies Allergy Verified 07/21/19 00:22 Travel Screening - Travel/Exposure Within Last 30 Days Have you traveled within the last 30 days?: No Review of Systems Constitutional: Denies: Chills, Fever Eyes: Denies: Eye discharge ENT: Denies: Congestion Respiratory: Denies: Cough, Dyspnea Past Medical History - SOCIAL HISTORY Smoking Status: Current every day smoker - RESPIRATORY Hx Respiratory Disorders: Yes Hx Asthma: Yes (uses when she has a cold or when the humidity is high) Hx Bronchitis: Yes Hx COPD: Yes Hx Pneumonia: Yes (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) Hx Sleep Apnea: Yes Hx of CPAP: No - CARDIOVASCULAR Hx Cardio Disorders: Yes Hx Abnormal EKG: Yes Hx Cardiac Cath: Yes (2017 negative) Hx CHF: Yes (with pneumonia 2017) Hx Heart Attack: Yes (has been told she has had) Hx Hypertension: Yes (on meds good control) - NEURO Hx Neuro Disorders: Yes 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) - GI Hx GI Disorders: No - Hx Genitourinary Disorders: Yes Hx Bladder Problem: Yes (incontinence stress) Hx Renal Disease: Yes (hx kidney failure with pneumonia no dialysis) Hx UTI: Yes (hx of) Comment:: polycystic ovarian disease - ENDOCRINE Hx Endocrine Disorders: No Hx Diabetes: (denies) - MUSCULOSKELETAL Hx Musculoskeletal Disorders: Yes Comment:: Spinal stenosis; L knee sprain recently - PSYCH Hx Psych Problems: Yes Comment:: bipolar - HEMATOLOGY/ONCOLOGY Hx Hematology/Oncology Disorders: No Family Medical History Any Significant Family History?: Yes Hx Diabetes: Mother, Brother/Sister Physical Exam - General General Appearance: Alert, Oriented x3, Cooperative, No acute distress - Head Head exam: Atraumatic - Eye Eye exam: Normal appearance, PERRL - ENT Teeth exam: Dental caries. negative: Normal inspection - Neck Neck exam: Normal inspection, Full ROM. negative: Tenderness - Respiratory Respiratory exam: Normal lung sounds bilaterally. negative: Respiratory distress - Cardiovascular Cardiovascular Exam: Regular rate, Normal rhythm, Normal heart sounds - GI/Abdominal GI/Abdominal exam: Soft, Normal bowel sounds. negative: Tenderness - exam: Other (There is a pea sized pimple in the area of her previous abscess over the R perineal area. It was easily popped and a very small amount of purulence was expressed. There is NO surrounding erythema, tenderness or any abscess identified.). negative: Vaginal discharge, Vaginal erythema - Extremities Extremities exam: Normal inspection, Full ROM, Normal capillary refill. negative: Tenderness Course Vital Signs 08/26/19 10:52 Temperature 99.6 F Pulse Rate 107 H Respiratory 20 Rate Blood Pressure 131/89 Pulse Ox 94 L - Reevaluation(s) Reevaluation #1: The patient is doing well at this time. The pea sized superficial skin abscess is not tender or swollen. There is no more purulence expressed from the area and it is not tender. I did discuss the need to watch the area carefully and to return to the ER for any worsening symptoms. 08/26/19 11:51 Medical Decision Making - Lab Data Result diagrams: 08/26/19 11:15 08/26/19 11:15 Disposition Disposition: Discharge Clinical Impression: Skin infection Disposition: Home, Self-Care Condition: (2) Stable Instructions: Furunculosis and Carbunculosis (ED) Additional Instructions: Please use warm compresses on the area when possible and take the Clindamycin. P lease return to the ER for any pain, swelling in the area, redness, drainage or fever. Prescriptions: Clindamycin HCl [Cleocin HCl] 300 mg PO QID #28 capsule Forms: Patient Portal Access Time of Disposition: 11:53 Quality - Quality Measures Quality Measures: N/A - Blood Pressure Screening View Details: Yes Does Patient Have Any of the Following: No Blood Pressure Classification: Pre-Hypertensive BP Reading Systolic Measurement: 131 Diastolic Measurement: 89 Screening for High Blood Pressure: < Pre-Hypertensive BP, F/U Documented > [G8950] Pre-Hypertensive Follow-up Interventions: Referral to alternative/primary care provider.
[2019-08-26 11:23] LABS: ABSOLUTE NEUTROPHIL COUNT 4.18; BASO % 0.8 % (0-6); EOS % 5.2 % (0-6); GRAN % 53.5 % (47-80); HEMATOCRIT 46.2 % (35.0-47.0); LYMPH % 32.3 % (16-45); MEAN CELL VOLUME 92.4 fl (81-97); MEAN CORPUSCULAR HGB CONC 32.5 g/dl (32-36); MEAN PLATELET VOLUME 10.6 fl (7.4-10.4); MONO % 8.2 % (0-9); PLATELET COUNT 314 K/uL (130-400); RED CELL DISTRIBUTION WIDTH 16.8 % (11.5-14.5); WHITE BLOOD COUNT W/O DIFF 7.8 K/uL (4.2-12.2)
[2019-08-26 11:31] LABS: BLOOD UREA NITROGEN 6 mg/dL (6-20); CREATININE 0.6 mg/dL (0.5-0.9); EST GLOMERULAR FILTRATION RATE > 60 mL/min
[2019-08-26 11:32] LABS: TOTAL PROTEIN 6.7 g/dL (6.6-8.7)
[2019-08-26 11:34] LABS: GLUCOSE,RANDOM 150 mg/dL (74-109)
[2019-08-26 11:36] LABS: ALBUMIN 4.1 g/dL (4.0-5.0); ALKALINE PHOSPHATASE 94 U/L (35-104); ALT/SGPT 37 U/L (<33); AST/SGOT 27 U/L (10.0-35.0)
[2019-08-26 11:37] LABS: C-REACTIVE PROTEIN 1.07 mg/dL (<0.5)
[2019-08-26 11:39] LABS: ALB/GLOB RATIO 1.6 (1.1-1.8)
== END 2019-08-26 12:06 | disposition home or self-care (01) ==
LOC: ER 10:46
DX: L02.225 Furuncle of perineum (principal); F17.210 Nicotine dependence, cigarettes, uncomplicated
CPT/HCPCS: 80053; 85025; 86140; 99283

== ENCOUNTER 2019-10-28 17:27 | Inpatient (IN) | payer BC ==
[2019-10-28] MEDS ORDERED: IPRATROPIUM/ALBUTEROL (0.5MG/3MG) NEB INH ONE (17:35)
[2019-10-28] MEDS ORDERED: ACETAMINOPHEN 1,000 MG/100 ML BTL IVPB ONE (17:35)
[2019-10-28] MEDS ORDERED: METHYLPREDNISOLONE PF 125MG/VIAL IVP ONE (17:35)
--- NOTE | 2019-10-28 17:39 | Emergency Department Record ---
History of Present Illness <Alissa Ambriz - Last Filed: 10/28/19 21:01> - General Source: Patient Mode of Arrival: Ambulatory Limitations: No limitations - History of Present Illness Initial Comments: 49 yo female presents with multiple complaints. She states she started to not feel well on Thursday at [facility]. She states when she was leaving she passed out. She states she was admitted to the hospital. She thinks her diagnosis was urinary tract infection. She is on an antibiotic but she is having three days of severe lower abdominal pain, burning with urination, fever, and chills. The pain wraps around her back as well. She is coughing and wheezing. She has a long history of COPD, CAD, smoking. -: Days(s) (3) Severity: Moderate Quality: Other Consistency: Constant Improves With: Nothing Worsens With: Nothing Known History Of: COPD Context: Other Associated Symptoms: Cough, Other (Dysuria) Treatments Prior to Arrival: Other - Related Data Home Oxygen Therapy: No <RICHARD VU - Last Filed: 10/29/19 07:07> - General Chief Complaint: Shortness of breath Stated Complaint: BOOGIE Time Seen by Provider: 10/28/19 17:31 - Related Data Allergies Allergy/AdvReac Type Severity Reaction Status Date / Time No Known Drug Allergies Allergy Verified 07/21/19 00:22 Review of Systems Constitutional: Reports: Chills, Fever Eyes: Denies: Eye discharge ENT: Reports: Congestion Respiratory: Reports: Cough, Dyspnea, Wheezes Cardiovascular: Reports: Dyspnea on exertion. Denies: Chest pain Endocrine: Reports: Fatigue Gastrointestinal: Reports: Abdominal pain. Denies: Diarrhea, Nausea, Vomiting Genitourinary: Reports: Dysuria, Frequency. Denies: Hematuria Musculoskeletal: Reports: Back pain. 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) Hx Sleep Apnea: Yes Hx of CPAP: No - CARDIOVASCULAR Hx Cardio Disorders: Yes Hx Abnormal EKG: Yes Hx Cardiac Cath: Yes (2017 negative) Hx CHF: Yes (with pneumonia 2017) Hx Heart Attack: Yes (has been told she has had) Hx Hypertension: Yes (on meds good control) - NEURO Hx Neuro Disorders: Yes 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) - GI Hx GI Disorders: No - Hx Genitourinary Disorders: Yes Hx Bladder Problem: Yes (incontinence stress) Hx Renal Disease: Yes (hx kidney failure with pneumonia no dialysis) Hx UTI: Yes (hx of) Comment:: polycystic ovarian disease - ENDOCRINE Hx Endocrine Disorders: No Hx Diabetes: (denies) - MUSCULOSKELETAL Hx Musculoskeletal Disorders: Yes Comment:: Spinal stenosis; L knee sprain recently - PSYCH Hx Psych Problems: Yes Comment:: bipolar - HEMATOLOGY/ONCOLOGY Hx Hematology/Oncology Disorders: No <RICHARD VU - Last Filed: 10/29/19 07:07> Family Medical History Hx Diabetes: Mother, Brother/Sister <RICHARD VU - Last Filed: 10/29/19 07:07> Physical Exam - General General Appearance: Alert, Oriented x3, Cooperative, Mild distress Limitations: No limitations - Head Head exam: Atraumatic, Normal inspection - Eye Eye exam: Normal appearance, PERRL. negative: Scleral icterus - ENT ENT exam: Normal exam Ear exam: Normal external inspection Nasal Exam: Normal inspection Mouth exam: Normal external inspection Throat exam: Normal inspection - Neck Neck exam: Normal inspection. negative: Lymphadenopathy, Meningismus - Respiratory Respiratory exam: Decreased breath sounds, Prolonged expiratory, Wheezes. negative: Normal lung sounds bilaterally, Respiratory distress - Cardiovascular Cardiovascular Exam: Normal rhythm, Tachycardia Peripheral Pulses: 2+: Radial (R), Radial (L) - GI/Abdominal GI/Abdominal exam: Soft, Tenderness (tender across the lower abdomen). negative: Distended - Rectal Rectal exam: Deferred - exam: Deferred - Extremities Extremities exam: Normal inspection. negative: Calf tenderness, Pedal edema, Tenderness - Back Back exam: Reports: CVA tenderness (R), CVA tenderness (L) - Neurological Neurological exam: Alert, Oriented X3 - Psychiatric Psychiatric exam: Anxious - Skin Skin exam: Diaphoretic, Intact, Normal color, Warm <RICHARD VU - Last Filed: 10/29/19 07:07> Course Vital Signs 10/28/19 10/28/19 10/28/19 17:29 17:40 18:36 Temperature 102.3 F H Pulse Rate 123 H 123 H Pulse Rate [ 122 H Pulse Ox Probe] Respiratory 20 20 20 Rate Blood Pressure 141/93 Blood Pressure 119/93 [Right Arm] Pulse Ox 88 L 96 95 10/28/19 10/28/19 19:00 20:37 Temperature 99.5 F Pulse Rate Pulse Rate [ 84 Pulse Ox Probe] Respiratory Rate Blood Pressure Blood Pressure 114/73 [Right Arm] Pulse Ox 93 L - Reevaluation(s) Reevaluation #2: 10/28/19 21:[address] shows ground glass appearance of lungs possible infectious. pt is on bactrim however she will be switched to cipro for better coverage of pneumonia and uti. pt ambulated to bathroom and sats dropped to 85% <Alissa Ambriz - Last Filed: 10/28/19 21:01> - Reevaluation(s) Reevaluation #1: EKG #1: 17:50 Rate: 120 Rhythm: sinus tachycardia [place]: left Intervals: Qtc 470 ST segments: NS lateral flat T waves 10/28/19 18:06 The CBC was reviewed The WBC count is 17 The HGB is 392 10/28/19 18:07 On recheck after the Duoneb the patient is doing better. The wheezing is greatly improved and her work of breathing is normal Saturations improved from 88 to 96% 10/28/19 18:09 No records on [facility] Will request records from Juanjo Coley from the recent admission 10/28/19 18:10 10/28/19 18:15 Influenza are negative 10/28/19 18:20 The CMP was reviewed The GFR is > 60 with BUN [address] of the AP ordered given her significant abdominal pain 10/28/19 18:21 The lactic acid is 1.4 in the normal range 10/28/19 18:30 [facility] forwarded the discharge instructions not summary. They will be recontacted. 10/28/19 18:51 Vianca FOSTER Summary: UTI, sepsis, COPD <RICHARD VU - Last Filed: 10/29/19 07:07> Medical Decision Making - Lab Data Result diagrams: 10/28/19 17:35 10/28/19 17:35 Lab Results 10/28/19 10/28/19 10/28/19 Range/Units 07:48 17:35 17:35 WBC 17.8 H (4.2-12.2) K/uL RBC 5.41 H (3.80-5.40) M/uL Hgb 15.8 (11.6-16.0) gm/dl Hct 49.1 H (35.0-47.0) % MCV 90.8 (81-97) fl MCH 29.2 (27-33) pg MCHC 32.2 (32-36) g/dl RDW 14.4 (11.5-14.5) % Plt Count 392 (130-400) K/uL MPV 11.2 H (7.4-10.4) fl Neutrophils % 70.0 (47-80) % Eosinophils % Not Reportable Basophils % Not Reportable Absolute Neutrophils 12.36 Lymphocytes 23.0 (16-45) % Monocytes 6.0 (0-9) % Platelet Estimate Normal (NORMAL) Anisocytosis 1+ Eosinophil Count 1.0 (0-6) % Sodium 142 (136-145) mmol/L Potassium 4.4 (3.4-4.5) mmol/L Chloride 100 (98-107) mmol/L Carbon Dioxide 26.0 (22-29) mmol/L Anion Gap 16.0 (7-16) BUN 13 (6-20) mg/dL Creatinine 0.8 (0.5-0.9) mg/dL Estimated GFR > 60 mL/min Random Glucose 122 H (74-109) mg/dL Lactic Acid 1.4 (0.5-2.2) mmol/L Calcium 9.8 (8.6-10.0) mg/dL Total Bilirubin 0.50 (0.2-1.0) mg/dL AST 30 (10.0-35.0) U/L ALT 38 H (<33) U/L Alkaline Phosphatase 139 H (35-104) U/L Troponin T < 0.010 (0-0.010) ng/mL Total Protein 8.1 (6.6-8.7) g/dL Albumin 4.4 (4.0-5.0) g/dL Globulin 3.7 (1.4-4.8) gm/dL Albumin/Globulin Ratio 1.2 (1.1-1.8) Urine Color Urine Appearance Urine pH (5.0-8.0) Ur Specific [place] (1.002-1.030) Urine Protein (NEGATIVE) Urine Glucose (UA) (NEGATIVE) Urine Ketones (NEGATIVE) Urine Blood (NEGATIVE) Urine Nitrite (NEGATIVE) Urine Bilirubin (NEGATIVE) Urine Urobilinogen (0.20 - 1.00) E.U./dL Ur Leukocyte Esterase (NEGATIVE) Urine RBC (NONE SEEN) Urine WBC (0-2/hpf) Ur Epithelial Cells (FEW) Influenza Type A Ag (NEGATIVE) Influenza Type B Ag (NEGATIVE) 10/28/19 10/28/19 Range/Units 17:45 Unknown WBC (4.2-12.2) K/uL RBC (3.80-5.40) M/uL Hgb (11.6-16.0) gm/dl Hct (35.0-47.0) % MCV (81-97) fl MCH (27-33) pg MCHC (32-36) g/dl RDW (11.5-14.5) % Plt Count (130-400) K/uL MPV (7.4-10.4) fl Neutrophils % (47-80) % Eosinophils % Basophils % Absolute Neutrophils Lymphocytes (16-45) % Monocytes (0-9) % Platelet Estimate (NORMAL) Anisocytosis Eosinophil Count (0-6) % Sodium (136-145) mmol/L Potassium (3.4-4.5) mmol/L Chloride (98-107) mmol/L Carbon Dioxide (22-29) mmol/L Anion Gap (7-16) BUN (6-20) mg/dL Creatinine (0.5-0.9) mg/dL Estimated GFR mL/min Random Glucose (74-109) mg/dL Lactic Acid (0.5-2.2) mmol/L Calcium (8.6-10.0) mg/dL Total Bilirubin (0.2-1.0) mg/dL AST (10.0-35.0) U/L ALT (<33) U/L Alkaline Phosphatase (35-104) U/L Troponin T (0-0.010) ng/mL Total Protein (6.6-8.7) g/dL Albumin (4.0-5.0) g/dL Globulin (1.4-4.8) gm/dL Albumin/Globulin Ratio (1.1-1.8) Urine Color Yellow Urine Appearance Clear Urine pH 6.0 (5.0-8.0) Ur Specific [place] 1.020 (1.002-1.030) Urine Protein 100 mg/dl H (NEGATIVE) Urine Glucose (UA) Negative (NEGATIVE) Urine Ketones Negative (NEGATIVE) Urine Blood Moderate (NEGATIVE) Urine Nitrite Negative (NEGATIVE) Urine Bilirubin Negative (NEGATIVE) Urine Urobilinogen 0.2 (0.20 - 1.00) E.U./dL Ur Leukocyte Esterase Negative (NEGATIVE) Urine RBC 7 - 10 (NONE SEEN) Urine WBC None seen (0-2/hpf) Ur Epithelial Cells 0 - 2 (FEW) Influenza Type A Ag Negative (NEGATIVE) Influenza Type B Ag Negative (NEGATIVE) <Alissa Ambriz - Last Filed: 10/28/19 21:01> - Lab Data Result diagrams: 10/28/19 17:35 10/28/19 17:35 <RICHARD VU - Last Filed: 10/29/19 07:07> Disposition Decision to Admit Time: 21:04 <Alissa Ambriz - Last Filed: 10/28/19 21:01> Disposition: Admit Decision to Admit: Admit from ER Decision to Admit Date: 10/28/19 Time of Disposition: 21:00 <RICHARD VU - Last Filed: 10/29/19 07:07> Clinical Impression: COPD exacerbation, Hypoxia, Dysuria Abdominal pain Qualifiers: Abdominal location: generalized Qualified Code(s): R10.84 - Generalized abdominal pain Pneumonia Qualifiers: Pneumonia type: due to unspecified organism Laterality: bilateral Lung location: lower lobe of lung Qualified Code(s): J18.9 - Pneumonia, unspecified organism Disposition: Still a Patient at [facility] Condition: (2) Stable Quality - Quality Measures Quality Measures: N/A - Blood Pressure Screening Does Patient Have Any of the Following: Active Dx of HTN Blood Pressure Classification: Hypertensive Reading Systolic Measurement: 141 Diastolic Measurement: 93 Screening for High Blood Pressure: Patient Exclusion, Hx of HTN [G9744] <Alissa Ambriz - Last Filed: 10/28/19 21:01> - Quality Measures Quality Measures: N/A - Blood Pressure Screening Does Patient Have Any of the Following: Active Dx of HTN Blood Pressure Classification: Hypertensive Reading Systolic Measurement: 141 Diastolic Measurement: 93 Screening for High Blood Pressure: Patient Exclusion, Hx of HTN [G9744] <RICHARD VU - Last Filed: 10/29/19 07:07>
[2019-10-28 17:57] LABS: ABSOLUTE NEUTROPHIL COUNT 12.36; HEMATOCRIT 49.1 % (35.0-47.0); HEMOGLOBIN 15.8 gm/dl (11.6-16.0); MEAN CELL VOLUME 90.8 fl (81-97); MEAN CORPUSCULAR HEMOGLOBIN 29.2 pg (27-33); MEAN CORPUSCULAR HGB CONC 32.2 g/dl (32-36); MEAN PLATELET VOLUME 11.2 fl (7.4-10.4); PLATELET COUNT 392 K/uL (130-400); RED BLOOD COUNT 5.41 M/uL (3.80-5.40); RED CELL DISTRIBUTION WIDTH 14.4 % (11.5-14.5); WHITE BLOOD COUNT W/O DIFF 17.8 K/uL (4.2-12.2)
[2019-10-28 18:09] LABS: BLOOD UREA NITROGEN 13 mg/dL (6-20); CREATININE 0.8 mg/dL (0.5-0.9); EST GLOMERULAR FILTRATION RATE > 60 mL/min
[2019-10-28] MEDS ORDERED: LIDOCAINE UROJECT 10 ML APPL MM ONE (18:09)
[2019-10-28 18:10] LABS: TOTAL PROTEIN 8.1 g/dL (6.6-8.7)
[2019-10-28 18:12] LABS: GLUCOSE,RANDOM 122 mg/dL (74-109)
[2019-10-28 18:14] LABS: INFLUENZA A NEGATIVE (NEGATIVE); INFLUENZA B NEGATIVE (NEGATIVE)
[2019-10-28 18:14] LABS: ALT/SGPT 38 U/L (<33); AST/SGOT 30 U/L (10.0-35.0)
[2019-10-28 18:15] LABS: ALB/GLOB RATIO 1.2 (1.1-1.8); ALBUMIN 4.4 g/dL (4.0-5.0); ALKALINE PHOSPHATASE 139 U/L (35-104); ANISOCYTOSIS 1+; LACTIC ACID 1.4 mmol/L (0.5-2.2); PLATELET ESTIMATE NORMAL (NORMAL)
[2019-10-28] MEDS ORDERED: MORPHINE SULFATE 5 MG/ML VIAL IVP ONE ×2 (18:18→23:19)
[2019-10-28 18:35] LABS: URINE APPEARANCE CLEAR; URINE BILIRUBIN NEGATIVE (NEGATIVE); URINE BLOOD MODERATE (NEGATIVE); URINE COLOR YELLOW; URINE GLUCOSE (UA) NEGATIVE (NEGATIVE); URINE KETONE NEGATIVE (NEGATIVE); URINE LEUKOCYTE ESTERASE NEGATIVE (NEGATIVE); URINE NITRITE NEGATIVE (NEGATIVE); URINE UROBILINOGEN 0.2 E.U./dL (0.20 - 1.00)
[2019-10-28 18:45] LABS: URINE EPITHELIAL CELLS 0 - 2 (FEW); URINE WBC NONE SEEN (0-2/hpf)
[2019-10-28] MEDS ORDERED: CEFTRIAXONE 1GM/50ML BAG 1 GM/50 ML BAG IVPB ONE (18:52)
--- NOTE | 2019-10-28 20:35 | RADIOLOGY REPORT ---
EXAMINATION: CHEST 1 VIEW EXAM DATE: 10/28/2019 7:34 PM TECHNIQUE: Portable frontal chest radiograph INDICATION: cough COMPARISON: None. FINDINGS: The cardiomediastinal silhouette is normal. No focal lung consolidation or pulmonary edema. No pneumothorax or appreciable pleural effusion. The bones are unremarkable. IMPRESSION: No evidence of acute pulmonary process. Dictated by: Mac Chan MD on 10/28/2019 8:32 PM. .
--- NOTE | 2019-10-28 20:46 | CT SCAN REPORT ---
EXAMINATION: ABDOMEN/PELVIS W CONTRAST EXAM DATE:10/28/2019 7:35 PM TECHNIQUE: Spiral CT images were obtained from the lung bases to the ischial tuberosities with intrav enous contrast. Sagittal and coronal 2-D reformats were made from source images. See EMR for IV con trast type and dose. Oral contrast: Yes INDICATION: abdominal pain, uti COMPARISON: None FINDINGS: CT Abdomen: Liver: Diffusely decreased attenuation due to fatty infiltration. No focal liver lesions. Bile ducts: Normal caliber bile ducts Gallbladder: Small gallbladder wall calcifications or gallstones. No gallbladder dilation or pericho lecystic fluid. Pancreas: No peripancreatic inflammation. Approximately 6 mm hypodensity in the pancreatic tail (2:5 8). No dilation of the main pancreatic duct. Spleen: Normal size. Adrenals: No mass or other abnormality. Kidneys and Ureters: Nephrograms are normal and symmetric. No urinary tract stones or hydronephrosi s. No focal renal lesions. GI: Colonic diverticulosis. No adjacent inflammatory change or wall thickening. The small bowel is u nremarkable. Normal appendix. Vasculature: Unremarkable. No aneurysmal dilation of the abdominal aorta. Lymph Nodes: No lymphadenopathy. Abdominal Wall: Unremarkable. Peritoneal Cavity: No free intraperitoneal fluid or gas. Retroperitoneum: Unremarkable. Skeletal: Severe disc height loss at T11-12 and L3-4 and L4-5. Lung bases: Patchy groundglass opacity in the lower lung alonso. CT Pelvis (In addition to findings described above.): Bladder: The bladder is unremarkable. Lymph nodes: No lymphadenopathy. IMPRESSION: 1. No acute abnormality in the abdomen or pelvis. 2. Groundglass opacity in the lower lung alonso is very nonspecific but could be infectious in the a ppropriate clinical setting. 3. Colonic diverticulosis. 4. Small gallbladder wall calcifications or gallstones. 5. Other findings as described above. Dictated by: Mac Chan MD on 10/28/2019 8:35 PM. .
[2019-10-28] MEDS ORDERED: LISINOPRIL 10 MG TABLET PO SCH (22:08)
[2019-10-28] MEDS ORDERED: FLUOXETINE HCL 10 MG CAPSULE PO SCH (22:08)
[2019-10-28] MEDS ORDERED: ACETAMINOPHEN 500 MG TABLET PO PRN (22:08)
[2019-10-28] MEDS ORDERED: LEVOFLOXACIN/D5W 750 MG/150 ML BAG IVPB SCH (22:08)
[2019-10-28] MEDS ORDERED: ALBUTEROL SULFATE (0.083%) 2.5 MG/3 ML NEB INH PRN (22:08)
[2019-10-28] MEDS ORDERED: LAMOTRIGINE 25 MG PO SCH (22:08)
[2019-10-28] MEDS ORDERED: IBUPROFEN 200 MG TABLET PO PRN (22:08)
[2019-10-28] MEDS: NICOTINE14 MG/24 HOUR PATCH TD SCH (23:44)
[2019-10-28] MEDS: PHENAZOPYRIDINE HCL 95 MG TABLET PO SCH (23:50)
[2019-10-28] MEDS: METHYLPREDNISOLONE PF 125MG/VIAL IVP SCH (23:51)
[2019-10-29] MEDS: IPRATROPIUM/ALBUTEROL (0.5MG/3MG) NEB INH PRN ×2 (00:01→08:43)
[2019-10-29] MEDS: PREGABALIN (LYRICA) 100MG CAPSULE PO SCH ×2 (01:29→12:22)
[2019-10-29] MEDS: PHENAZOPYRIDINE HCL 95 MG TABLET PO SCH ×3 (01:29→12:22)
[2019-10-29] MEDS: METHYLPREDNISOLONE PF 125MG/VIAL IVP SCH (05:22)
[2019-10-29] MEDS ORDERED: MORPHINE SULFATE 5 MG/ML VIAL IVP ONE (07:17)
[2019-10-29 08:26] LABS: HEMATOCRIT 44.1 % (35.0-47.0); HEMOGLOBIN 14.8 gm/dl (11.6-16.0); MEAN CORPUSCULAR HGB CONC 33.6 g/dl (32-36); RED BLOOD COUNT 4.92 M/uL (3.80-5.40); WHITE BLOOD COUNT W/O DIFF 14.2 K/uL (4.2-12.2)
[2019-10-29 08:27] LABS: MEAN CELL VOLUME 89.6 fl (81-97); MEAN PLATELET VOLUME 10.8 fl (7.4-10.4); PLATELET COUNT 338 K/uL (130-400); RED CELL DISTRIBUTION WIDTH 13.9 % (11.5-14.5)
--- NOTE | 2019-10-29 10:02 | History & Physical ---
History of Present Illness - Date of Service Date of Service for History & Physical: 10/29/19 - History of Present Illness Admitting Diagnosis: pneumonia, copd exacerbation w hypoxia, hx uti History of Present Illness: 49 yo female presents to [facility] ER for abd pain and BOOGIE. Was recently inpt at [facility] for UTI. Was d/c'd and had continued/increasing abd pain BOOGIE. PMH Labs are as documented Abd Ct negative for acute abd pain process but ground glass changes not arley lower lungs and pt desaturations are indicative of potential PNA vs COPD exacerbation. Pt given supplementary O2, alb neb, steroids and antibiotics. Admit for COPD vs PNA with abd pain Laboratory Tests 10/28/19 10/28/19 10/28/19 07:48 17:35 17:35 WBC 17.8 H RBC 5.41 H Hgb 15.8 Hct 49.1 H Plt Count 392 Absolute Neutrophils 12.36 Sodium 142 Potassium 4.4 Chloride 100 Carbon Dioxide 26.0 Anion Gap 16.0 BUN 13 Creatinine 0.8 Estimated GFR > 60 Random Glucose 122 H Lactic Acid 1.4 Calcium 9.8 Total Bilirubin 0.50 AST 30 ALT 38 H Alkaline Phosphatase 139 H Troponin T < 0.010 Total Protein 8.1 Albumin 4.4 Globulin 3.7 Albumin/Globulin Ratio 1.2 Urine Color Urine Appearance Urine pH Ur Specific [place] Urine Protein Urine Glucose (UA) Urine Ketones Urine Blood Urine Nitrite Urine Bilirubin Urine Urobilinogen Ur Leukocyte Esterase Urine RBC Urine WBC Ur Epithelial Cells Influenza Type A Ag Influenza Type B Ag 10/28/19 10/28/19 17:45 Unknown WBC RBC Hgb Hct Plt Count Absolute Neutrophils Sodium Potassium Chloride Carbon Dioxide Anion Gap BUN Creatinine Estimated GFR Random Glucose Lactic Acid Calcium Total Bilirubin AST ALT Alkaline Phosphatase Troponin T Total Protein Albumin Globulin Albumin/Globulin Ratio Urine Color Yellow Urine Appearance Clear Urine pH 6.0 Ur Specific [place] 1.020 Urine Protein 100 mg/dl H Urine Glucose (UA) Negative Urine Ketones Negative Urine Blood Moderate Urine Nitrite Negative Urine Bilirubin Negative Urine Urobilinogen 0.2 Ur Leukocyte Esterase Negative Urine RBC 7 - 10 Urine WBC None seen Ur Epithelial Cells 0 - 2 Influenza Type A Ag Negative Influenza Type B Ag Negative 10/29/19 Through the night, pt continued to complain of 9/10 pain, given morphine 4mg x2 for reported pain. 12:30 Pt is sitting up in bed, 2 female friends at bedside. pt was to be given toradol for pain, began screaming at nursing that toradol "make me sick". This provider called to bedside, pt reports toradol makes her feel hot and cause nausea. Travel Screening - Travel/Exposure Within Last 30 Days Have you traveled within the last 30 days?: No - Travel/Exposure Within Last Year Have you traveled outside the [place] in the last year?: No - Additonal Travel Details Have you been exposed to anyone with a communicable illness?: No - Travel Symptoms Symptom Screening: Fever (GT 100.4), Headache, Joint & Muscle Aches, Weakness, Diarrhea Review of Systems Constitutional: Reports: Chills, Fever Eyes: Denies: Eye discharge ENT: Reports: Congestion Respiratory: Reports: Cough, Dyspnea, Wheezes Cardiovascular: Reports: Dyspnea on exertion. Denies: Chest pain Endocrine: Reports: Fatigue Gastrointestinal: Reports: Abdominal pain. Denies: Diarrhea, Nausea, Vomiting Genitourinary: Reports: Dysuria, Frequency. Denies: Hematuria Musculoskeletal: Reports: Back pain. Denies: Arthralgia, Neck pain Skin: Denies: Bruising, Change in color, Rash Neurological: Denies: Headache, Numbness, Paresthesias, Weakness Psychiatric: Reports: Anxiety Hematological/Lymphatic: Denies: Easy bleeding, Easy bruising Past Medical History - SOCIAL HISTORY Smoking Status: Current every day smoker - RESPIRATORY Hx Respiratory Disorders: Yes Hx Asthma: Yes (uses when she has a cold or when the humidity is high) Hx Bronchitis: Yes Hx COPD: Yes Hx Pneumonia: Yes (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) Hx Sleep Apnea: Yes Hx of CPAP: No - CARDIOVASCULAR Hx Cardio Disorders: Yes Hx Abnormal EKG: Yes Hx Cardiac Cath: Yes (2017 negative) Hx CHF: Yes (with pneumonia 2017) Hx Heart Attack: Yes (has been told she has had) Hx Hypertension: Yes (on meds good control) - NEURO Hx Neuro Disorders: Yes 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) - GI Hx GI Disorders: No - Hx Genitourinary Disorders: Yes Hx Bladder Problem: Yes (incontinence stress) Hx Renal Disease: Yes (hx kidney failure with pneumonia no dialysis) Hx UTI: Yes (hx of) Comment:: polycystic ovarian disease - ENDOCRINE Hx Endocrine Disorders: No Hx Diabetes: (denies) - MUSCULOSKELETAL Hx Musculoskeletal Disorders: Yes Comment:: Spinal stenosis; L knee sprain recently - PSYCH Hx Psych Problems: Yes Comment:: bipolar - HEMATOLOGY/ONCOLOGY Hx Hematology/Oncology Disorders: No Family Medical History Hx Diabetes: Mother, Brother/Sister H&P Meds/Allergies - Allergies Allergies: Allergies Allergy/AdvReac Type Severity Reaction Status Date / Time No Known Drug Allergies Allergy Verified 07/21/19 00:22 - Home Medications Previous Rx's Medication Instructions Recorded Levofloxacin [Levaquin] 500 mg PO DAILY 7 Days #7 tablet 10/29/19 - Active Medications Active Medications: Current Medications Acetaminophen (Tylenol 500mg Tab) 1,000 mg PO Q6H PRN PRN Reason: PAIN - MILD(1-4)/FEVER Albuterol Sulfate (Albuterol Sulfate) 2.5 mg INH RESP.Q2H PRN PRN Reason: DIFFICULTY IN BREATHING Albuterol/Ipratropium (Duoneb) 3 ml INH RESP.Q6H PRN PRN Reason: WHEEZING Last Admin: 10/29/19 08:43 Dose: 3 ml Documented by: Fluoxetine HCl (Prozac) 10 mg PO QD [facility] Last Admin: 10/28/19 23:52 Dose: Not Given Documented by: Levofloxacin/Dextrose (Levaquin 750mg Ivpb) 750 mg in 150 mls @ 125 mls/hr IVPB Q24H [facility] Stop: 11/02/19 22:09 Last Admin: 10/28/19 23:44 Dose: 125 mls/hr Documented by: Ibuprofen (Motrin 200mg) 800 mg PO Q8H PRN PRN Reason: PAIN - MILD (1-4) Last Admin: 10/29/19 05:18 Dose: 800 mg Documented by: Lisinopril (Zestril) 10 mg PO QD [facility] Last Admin: 10/28/19 23:52 Dose: Not Given Documented by: Methylprednisolone Sodium Succinate (Solu-Medrol) 60 mg IVP Q8H [facility] Last Admin: 10/29/19 05:22 Dose: 60 mg Documented by: Nicotine (Nicotine 14mg) 1 patch TD DAILY [facility] Last Admin: 10/28/19 23:44 Dose: 1 patch Documented by: Non-Formulary Medication (Lamotrigine [Lamictal]) 25 mg PO QHS [facility] Phenazopyridine HCl (Azo Urinary Pain Relief) 190 mg PO TID [facility] Last Admin: 12/14/19 06:55 Dose: Not Given Documented by: Pregabalin (Lyrica) 200 mg PO TID [facility] Last Admin: 10/29/19 01:29 Dose: Not Given Documented by: Physical Exam - Vital Signs Vital Signs: Vital Signs - Last 24 Hrs Temp Pulse Pulse Resp BP BP Pulse Ox 10/29/19 08:43 99 H 20 93 L 10/29/19 08:00 98.0 F 84 119/73 93 L 10/29/19 05:30 98.8 F 96 H 22 107/76 97 10/29/19 00:02 89 18 94 L 10/28/19 22:45 98.2 F 83 22 151/80 95 10/28/19 21:53 98.8 F 90 20 127/97 96 10/28/19 20:37 84 114/73 93 L 10/28/19 19:00 99.5 F 10/28/19 18:36 122 H 20 119/93 95 10/28/19 17:40 123 H 20 96 10/28/19 17:29 102.3 F H 123 H 20 141/93 88 L - General General Appearance: Alert, Oriented x3, Cooperative, Mild distress Limitations: No limitations - Head Head exam: Atraumatic, Normal inspection - Eye Eye exam: Normal appearance, PERRL. negative: Scleral icterus - ENT ENT exam: Normal exam Ear exam: Normal external inspection Nasal Exam: Normal inspection Mouth exam: Normal external inspection Throat exam: Normal inspection - Neck Neck exam: Normal inspection. negative: Lymphadenopathy, Meningismus - Respiratory Respiratory exam: Decreased breath sounds, Prolonged expiratory, Wheezes. negative: Normal lung sounds bilaterally, Respiratory distress - Cardiovascular Cardiovascular Exam: Normal rhythm, Tachycardia Peripheral Pulses: 2+: Radial (R), Radial (L) - GI/Abdominal GI/Abdominal exam: Soft, Tenderness (tender across the lower abdomen). negative: Distended - Rectal Rectal exam: Deferred - exam: Deferred - Extremities Extremities exam: Normal inspection. negative: Calf tenderness, Pedal edema, Tenderness - Back Back exam: Reports: CVA tenderness (R), CVA tenderness (L) - Neurological Neurological exam: Alert, Oriented X3 - Psychiatric Psychiatric exam: Anxious - Skin Skin exam: Diaphoretic, Intact, Normal color, Warm Results - Labs Result Diagrams: 10/29/19 07:25 10/28/19 17:35 Labs Last 24 Hours: Laboratory Results - last 24 hr 10/28/19 10/28/19 10/28/19 07:48 17:35 17:35 WBC 17.8 H RBC 5.41 H Hgb 15.8 Hct 49.1 H MCV 90.8 MCH 29.2 MCHC 32.2 RDW 14.4 Plt Count 392 MPV 11.2 H Neutrophils % 70.0 Band Neutrophils % Eosinophils % Not Reportable Basophils % Not Reportable Absolute Neutrophils 12.36 Lymphocytes 23.0 Monocytes 6.0 Basophils Platelet Estimate Normal Anisocytosis 1+ Eosinophil Count 1.0 Sodium 142 Potassium 4.4 Chloride 100 Carbon Dioxide 26.0 Anion Gap 16.0 BUN 13 Creatinine 0.8 Estimated GFR > 60 Random Glucose 122 H Lactic Acid 1.4 Calcium 9.8 Total Bilirubin 0.50 AST 30 ALT 38 H Alkaline Phosphatase 139 H Troponin T < 0.010 Total Protein 8.1 Albumin 4.4 Globulin 3.7 Albumin/Globulin Ratio 1.2 Urine Color Urine Appearance Urine pH Ur Specific [place] Urine Protein Urine Glucose (UA) Urine Ketones Urine Blood Urine Nitrite Urine Bilirubin Urine Urobilinogen Ur Leukocyte Esterase Urine RBC Urine WBC Ur Epithelial Cells Influenza Type A Ag Influenza Type B Ag 10/28/19 10/28/19 10/29/19 17:45 Unknown 07:25 WBC 14.2 H RBC 4.92 Hgb 14.8 Hct 44.1 MCV 89.6 MCH 30.0 MCHC 33.6 RDW 13.9 Plt Count 338 MPV 10.8 H Neutrophils % 83.0 H Band Neutrophils % 0.0 Eosinophils % Not Reportable Basophils % Not Reportable Absolute Neutrophils Not Reportable Lymphocytes 15.0 L Monocytes 2.0 Basophils 0.0 Platelet Estimate Anisocytosis Eosinophil Count 0.0 Sodium Potassium Chloride Carbon Dioxide Anion Gap BUN Creatinine Estimated GFR Random Glucose Lactic Acid Calcium Total Bilirubin AST ALT Alkaline Phosphatase Troponin T Total Protein Albumin Globulin Albumin/Globulin Ratio Urine Color Yellow Urine Appearance Clear Urine pH 6.0 Ur Specific [place] 1.020 Urine Protein 100 mg/dl H Urine Glucose (UA) Negative Urine Ketones Negative Urine Blood Moderate Urine Nitrite Negative Urine Bilirubin Negative Urine Urobilinogen 0.2 Ur Leukocyte Esterase Negative Urine RBC 7 - 10 Urine WBC None seen Ur Epithelial Cells 0 - 2 Influenza Type A Ag Negative Influenza Type B Ag Negative - Imaging and Cardiology CT scan - abdomen Status: Report reviewed Chest x-ray Status: Report reviewed VTE H&P Assessment - Risk for VTE Risk for VTE: Yes Risk Level: Moderate Risk Assessment Date: 10/29/19 Risk Assessment Time: 10:02 VTE Orders Placed or Will Be Placed: Yes Plan - Inpatient Certification Inpatient Certification: Admit to inpatient care: Based on my medical assessment, after consideration of patient's risk factors (age, co-morbidities and patient presenting symptoms and acuity), I expect that this patient will remain in the hospital greater than or equal to two midnights and that the services needed warrant inpatient care because: Patient Risk Factors: sepsis, hypoxia, respiratory failure Estimated length of stay: The patient may reasonably be expected to be discharged or transferred to a hospital within 96 hours after admission to [facility]. Services needed: oxygen, IV abx, repeat labs, alb neb tx Post hospital care (if known): [] I certify that my determination is in accordance with my understanding of Medicare requirements for reasonable and necessary inpatient services. 10/29/19 12:59 - Detailed Diagnosis and Plan (1) Hypoxia Current Visit: Yes Status: Acute Base Code: R09.02 - HYPOXEMIA Comment: 10/29/19 -pt was found to have dropped sat in the ER after ambulation (per report) -nursing documented 93% on 2 L -pt is able to yell loudly with no difficulty as she began screaming at nursing and this provider this afternoon when she was updated that she would be given tylenol, motrin and azo for pain pt able to ambulate with steady gait and no increased shortness of breath was noted as she ambulated off premiss into a personal vehicle (2) COPD exacerbation Current Visit: Yes Status: Acute Base Code: J44.1 - CHRONIC OBSTRUCTIVE PULMONARY DISEASE W (ACUTE) EXACERBATION Comment: 10/29/19 -CT abd was neg for abd acute process but showed ground glass alrey lower lobes that could be indicative of PNA vs chronic COPD changes -pt has elevated WBC on admission -pt on supplement O2 and neb tx while inpt, pt does not have diagnositic (3) Abdominal pain Current Visit: Yes Status: Acute Qualifiers: Abdominal location: generalized Qualified Code(s): R10.84 - Generalized abdominal pain Base Code: R10.9 - UNSPECIFIED ABDOMINAL PAIN Comment: 10/29/19 -pt continues to report abd pain, burning with urination but pt does not appear in distress as she is moving around in bed, flailing her arms in the air, moving her legs up and down. Ambulating with no difficulty, standing up right, dressed self with no difficulty (4) Pneumonia Current Visit: Yes Status: Acute Qualifiers: Pneumonia type: due to unspecified organism Laterality: bilateral Lung location: lower lobe of lung Qualified Code(s): J18.9 - Pneumonia, unspecified organism Base Code: J18.9 - PNEUMONIA, UNSPECIFIED ORGANISM Comment: 10/29/19 -CT shows ground glass opacity in arley lower lungs, pt has elevated WBC and h/o COPD -pt left AMA when morphine order was d/c for painful urination sensation, given levaquin rx and encouraged to seek medical attention as she is needing antibitoics, breathing treatements, and supplementary oxygen
[2019-10-29] MEDS ORDERED: KETOROLAC 30 MG/ML VIAL IVP PRN (10:03)
[2019-10-29] MEDS ORDERED: ENOXAPARIN 40 MG/0.4 ML SYR SQ SCH (10:15)
[2019-10-29] MEDS: NICOTINE14 MG/24 HOUR PATCH TD SCH (12:21)
--- NOTE | 2019-10-29 13:32 | Discharge Summary ---
Providers Discharge Summary Date: 10/29/19 Date of admission: 10/28/19 21:49 Expected Date of Discharge: 10/29/19 Attending physician: ALTHEA BANGURA Physical Exam - Vital Signs Vital Signs: Vital Signs - Last 24 Hrs Temp Pulse Pulse Resp BP BP Pulse Ox 10/29/19 08:43 99 H 20 93 L 10/29/19 08:00 98.0 F 84 119/73 93 L 10/29/19 05:30 98.8 F 96 H 22 107/76 97 10/29/19 00:02 89 18 94 L 10/28/19 22:45 98.2 F 83 22 151/80 95 10/28/19 21:53 98.8 F 90 20 127/97 96 10/28/19 20:37 84 114/73 93 L 10/28/19 19:00 99.5 F 10/28/19 18:36 122 H 20 119/93 95 10/28/19 17:40 123 H 20 96 10/28/19 17:29 102.3 F H 123 H 20 141/93 88 L - General General Appearance: Alert, Oriented x3, Mild distress, Anxious Limitations: No limitations - Head Head exam: Atraumatic, Normal inspection - Eye Eye exam: Normal appearance, PERRL. negative: Scleral icterus - ENT ENT exam: Normal exam Ear exam: Normal external inspection Mouth exam: Normal external inspection - Neck Neck exam: negative: Lymphadenopathy, Meningismus - Respiratory Respiratory exam: negative: Respiratory distress - GI/Abdominal GI/Abdominal exam: negative: Distended - Rectal Rectal exam: Deferred - exam: Deferred - Extremities Extremities exam: Normal inspection, Full ROM, Pedal edema - Neurological Neurological exam: Alert, Normal gait, Oriented X3 - Psychiatric Psychiatric exam: Agitated, Anxious, Other (pt is yelling at staff, unable to be redirected ) - Skin Skin exam: Intact, Normal color Hospitalization - Hospitalization Admission Diagnosis: pneumonia, copd exacerbation w hypoxia, hx uti - Problem List/Discharge Diagnosis (1) Hypoxia Current Visit: Yes Status: Acute Base Code: R09.02 - HYPOXEMIA Comment: 10/29/19 -pt was found to have dropped sat in the ER after ambulation (per report) -nursing documented 93% on 2 L -pt is able to yell loudly with no difficulty as she began screaming at nursing and this provider this afternoon when she was updated that she would be given tylenol, motrin and azo for pain pt able to ambulate with steady gait and no increased shortness of breath was noted as she ambulated off premiss into a personal vehicle (2) COPD exacerbation Current Visit: Yes Status: Acute Base Code: J44.1 - CHRONIC OBSTRUCTIVE PULMONARY DISEASE W (ACUTE) EXACERBATION Comment: 10/29/19 -CT abd was neg for abd acute process but showed ground glass arley lower lobes that could be indicative of PNA vs chronic COPD changes -pt has elevated WBC on admission -pt on supplement O2 and neb tx while inpt, pt does not have diagnositic (3) Abdominal pain Current Visit: Yes Status: Acute Discharge Diagnosis: Abdominal location: generalized Qualified Code(s): R10.84 - Generalized abdominal pain Base Code: R10.9 - UNSPECIFIED ABDOMINAL PAIN Comment: 10/29/19 -pt continues to report abd pain, burning with urination but pt does not appear in distress as she is moving around in bed, flailing her arms in the air, moving her legs up and down. Ambulating with no difficulty, standing up right, dressed self with no difficulty (4) Pneumonia Current Visit: Yes Status: Acute Discharge Diagnosis: Pneumonia type: due to unspecified organism Laterality: bilateral Lung location: lower lobe of lung Qualified Code(s): J18.9 - Pneumonia, unspecified organism Base Code: J18.9 - PNEUMONIA, UNSPECIFIED ORGANISM Comment: 10/29/19 -CT shows ground glass opacity in arley lower lungs, pt has elevated WBC and h/o COPD -pt left AMA when morphine order was d/c for painful urination sensation, given levaquin rx and encouraged to seek medical attention as she is needing antibitoics, breathing treatements, and supplementary oxygen - Disposition CT abd neg, UA neg, hx of UTI -pt getting tylenol, motrin, azo and morphine through the night, this afternoon morphine d/c's as no diagnostics do not indicate need for narcotics. Pt began yelling at staff, stating if her pain is not controlled then she is leaving. Labs, CT and urine results printed and handed to pt and then given to pt sister in the room. Pt was to be given toradol but then began yelling that toradol makes her sick, when asked to elaborate pt reports it makes her hot and have nausea. Pt updated that is an intolerance not an allergy and offered to return to the motrin PO. Pt demanded that her discomfort be treated with alternatives or she was leaving. When updated that she is not getting narcotics pt states "I did not ask for that specifically, but I want something else for the pain and burning when I pee". IV pulled by Monica ([employer] and pt dressed herself with no difficulty. RX handed to pt but she placed it on the bedside table, it was then passed to her sister and her sister was encouraged to fill RX as pt is sick and needs to continue her antibiotics and seek medical attention if she gets worse. Sister verbalized understanding. - Hospitalization Course Disposition: Against Medical Advice Hospital Course: 49 yo female presents to [facility] ER for abd pain and BOOGIE. Was recently inpt at [facility] for UTI. Was d/c'd and had continued/increasing abd pain BOOGIE. PMH Labs are as documented Abd Ct negative for acute abd pain process but ground glass changes not arley lower lungs and pt desaturations are indicative of potential PNA vs COPD exacerbation. Pt given supplementary O2, alb neb, steroids and antibiotics. Admit for COPD vs PNA with abd pain Laboratory Tests 10/28/19 10/28/19 10/28/19 07:48 17:35 17:35 WBC 17.8 H RBC 5.41 H Hgb 15.8 Hct 49.1 H Plt Count 392 Absolute Neutrophils 12.36 Sodium 142 Potassium 4.4 Chloride 100 Carbon Dioxide 26.0 Anion Gap 16.0 BUN 13 Creatinine 0.8 Estimated GFR > 60 Random Glucose 122 H Lactic Acid 1.4 Calcium 9.8 Total Bilirubin 0.50 AST 30 ALT 38 H Alkaline Phosphatase 139 H Troponin T < 0.010 Total Protein 8.1 Albumin 4.4 Globulin 3.7 Albumin/Globulin Ratio 1.2 Urine Color Urine Appearance Urine pH Ur Specific [place] Urine Protein Urine Glucose (UA) Urine Ketones Urine Blood Urine Nitrite Urine Bilirubin Urine Urobilinogen Ur Leukocyte Esterase Urine RBC Urine WBC Ur Epithelial Cells Influenza Type A Ag Influenza Type B Ag 10/28/19 10/28/19 17:45 Unknown WBC RBC Hgb Hct Plt Count Absolute Neutrophils Sodium Potassium Chloride Carbon Dioxide Anion Gap BUN Creatinine Estimated GFR Random Glucose Lactic Acid Calcium Total Bilirubin AST ALT Alkaline Phosphatase Troponin T Total Protein Albumin Globulin Albumin/Globulin Ratio Urine Color Yellow Urine Appearance Clear Urine pH 6.0 Ur Specific [place] 1.020 Urine Protein 100 mg/dl H Urine Glucose (UA) Negative Urine Ketones Negative Urine Blood Moderate Urine Nitrite Negative Urine Bilirubin Negative Urine Urobilinogen 0.2 Ur Leukocyte Esterase Negative Urine RBC 7 - 10 Urine WBC None seen Ur Epithelial Cells 0 - 2 Influenza Type A Ag Negative Influenza Type B Ag Negative 10/29/19 Through the night, pt continued to complain of 9/10 pain, given morphine 4mg x2 for reported pain. 12:30 Pt is sitting up in bed, 2 female friends at bedside. pt was to be given toradol for pain, began screaming at nursing that toradol "make me sick". This provider called to bedside, pt reports toradol makes her feel hot and cause nausea. Procedures: Imaging and X-Rays 10/28/19 17:33 CHEST 1 VIEW [RAD] Stat 10/28/19 18:53 ABDOMEN/PELVIS W CONTRAST [CT] Stat Cardiology Procedures 10/28/19 17:33 Head Mva Reactor Operator NOW EKG NOW Abnormal Labs: Abnormal Lab Results 10/28/19 10/28/19 10/28/19 Range/Units 17:35 17:35 Unknown WBC 17.8 H (4.2-12.2) K/uL RBC 5.41 H (3.80-5.40) M/uL Hct 49.1 H (35.0-47.0) % MPV 11.2 H (7.4-10.4) fl Neutrophils % (47-80) % Lymphocytes (16-45) % Random Glucose 122 H (74-109) mg/dL ALT 38 H (<33) U/L Alkaline Phosphatase 139 H (35-104) U/L Urine Protein 100 mg/dl H (NEGATIVE) 10/29/19 Range/Units 07:25 WBC 14.2 H (4.2-12.2) K/uL RBC (3.80-5.40) M/uL Hct (35.0-47.0) % MPV 10.8 H (7.4-10.4) fl Neutrophils % 83.0 H (47-80) % Lymphocytes 15.0 L (16-45) % Random Glucose (74-109) mg/dL ALT (<33) U/L Alkaline Phosphatase (35-104) U/L Urine Protein (NEGATIVE) Condition at Discharge: (2) Stable Discharge Medications - Discharge Medications Prescriptions: Levofloxacin [Levaquin] 500 mg PO DAILY 7 Days #7 tablet Home Medications: Ambulatory Orders Ibuprofen [Motrin Ib] 800 mg PO Q8H PRN tab 10/05/19 [Last Taken 10/28/19] Pregabalin [Lyrica] 200 mg PO TID cap 10/05/19 [Last Taken 10/28/19] Acetaminophen [Tylenol 500Mg Tab] 1,000 mg PO Q6H PRN tablet 10/29/19 [Last Taken Unknown] Levofloxacin [Levaquin] 500 mg PO DAILY 7 Days #7 tablet 10/29/19 [Last Taken Unknown] Phenazopyridine HCl [Azo Urinary Pain Relief] 190 mg PO TID tablet 10/29/19 [Last Taken Unknown] Discharge Plan - Discharge Instructions Activity at Discharge: Increase Activity as Tolerated Additional Instructions: Pt has left AMA, refused to sign AMA but was educated by this provider that she does have concerns for pneumonia, should stay for antibiotics, steroids, neb treatments, oxygen and repeat labs. Witnessed by Elsa Rn and Phillip RT Quality Measures - Quality Measures Quality Measures: Documentation of Current Medications in Medical Record, Screening for High Blood Pressure and F/U Documented - Current Medications Quality Measure: Measure #130: Documentation of Current Medications Documentation of Current Medications: Not Documented, Patient Not Eligible [[id number]] - Blood Pressure Screening Quality Measure: Screening for High Blood Pressure and Follow-Up Documented Does Patient Have Any of the Following: No Blood Pressure Classification: Hypertensive Reading Systolic Measurement: 141 Diastolic Measurement: 93 Screening for High Blood Pressure: Pre or Hypertensive BP, No F/U Documented [[id number]] Reason for No BP or F/U: Refuses to Participate - Elder Abuse Suspicion Index EASI Reference Information: Dot COSBY, Renea C, Boo D, Regla Rendon.Development and validation of a tool to assist physicians identification of elder abuse: The Elder Abuse Suspicion Index (EASI ). Journal of Elder Abuse and Neglect, 2008; 20 (3): 276-300.
== END 2019-10-29 12:50 | disposition left against medical advice (07) | DRG 695 ==
LOC: ER 17:27 → MEDSURG 21:49
PROVIDERS: ADMIT Internal Medicine; ATTEND Internal Medicine
DX: R30.0 Dysuria (principal); J18.9 Pneumonia, unspecified organism; J44.1 Chronic obstructive pulmonary disease with (acute) exacerbation; Z53.29 Procedure and treatment not carried out because of patient's decision for other reasons; R10.9 Unspecified abdominal pain; I50.9 Heart failure, unspecified; I25.2 Old myocardial infarction; I10 Essential (primary) hypertension; G62.9 Polyneuropathy, unspecified; F41.9 Anxiety disorder, unspecified; R32 Unspecified urinary incontinence; F31.9 Bipolar disorder, unspecified; E28.2 Polycystic ovarian syndrome; F17.210 Nicotine dependence, cigarettes, uncomplicated; Z98.61 Coronary angioplasty status; Z86.14 Personal history of Methicillin resistant Staphylococcus aureus infection
CPT/HCPCS: 71045; 74177; 80053; 81001; 83605; 84484; 85027; 87400; 93005; 93010; 94640; 94664; 94760; 96365; 96366; 96374; 96375; 99223; 99285; J0696; J1650; J1885; J1956; J2930